=== PATIENT | female | born 1985 | race Caucasian/White ===

== ENCOUNTER 2019-03-30 21:41 | Emergency (ER) | payer OTHER ==
--- OUTSIDE RECORDS SUMMARY | 2019-03-30 21:48 | XMS REPORT | Continuity of Care Document ---
:1985 External Reference #:[id number] Author Name Clarence Painter M.D. (transmitted by agent of provider Brandy Motta) Address [address] [place] [address] Care Team Providers Name Role Phone Frank Almeida MD - Family Medicine Care Team Information Cold Rolling Supervisor [phone] Problems Description No Information Available Social History Type Date Description Comments Sex Unknown Tobacco Use Start: Unknown End: Used To Smoke Cigarettes But Unknown Quit. ETOH Use Rare Use Of Alcohol Recreational Drug Use Never Used Drugs Allergies, Adverse Reactions, Alerts Active Allergies Reaction Severity Comments Date Morphine anaphylaxis Moderate 03/06/2019 Bactrim Hives Moderate 03/06/2019 Penicillin Difficulty swallowing, Facial swelling, Severe 03/06/2019 Hives Medications Active Medications SIG Qnty Indications Ordering Provider Date Humira Unknown 40mg/0.4ML PSKT Phendimetrazine Tartrate Unknown 35mg Tablets Meloxicam Unknown 15mg Tablets Leflunomide Unknown 20mg Tablets Alprazolam as needed Unknown 0.25mg Tablets Oxycodone HCL Unknown 5mg Capsules Immunizations Description No Information Available Vital Signs Date Vital Result Comment 03/06/2019 8:59am Weight 340.00 lb Height 66 inches 5'6" BMI (Body Mass Index) 54.9 kg/m2 BP Systolic 146 mmHg BP Diastolic 97 mmHg Heart Rate 90 /min O2 % BldC Oximetry 97 % Body Temperature 98.2 F Pain Level 0 Results Description No Information Available Procedures Description No Information Available Medical Devices Description No Information Available Encounters Description No Information Available Assessments Description No Information Available Plan of Treatment Future Appointment(s):03/25/2019 8:45 am - Clarence Painter M.D. at [facility]/2018 6:00 pm - Clarence Painter M.D. at Main Office Functional Status Description No Information Available Mental Status Description No Information Available Referrals Description No Information Available
--- OUTSIDE RECORDS SUMMARY | 2019-03-30 21:48 | XMS REPORT | Continuity of Care Document ---
:1985 External Reference #:[id number] Author Name Fabian Santo DO, MPH Address [address] [place] [address], [address] [place] [address] Care Team Providers Name Role Phone Lexi Johnson M.D. - Family Medicine Care Team Information Low Heel Builder [phone] Frank Almeida M.D. - Family Care Team Information Low Heel Builder Medicine Problems Description No Information Available Social History Type Date Description Comments Sex Unknown Cigarette Use Former Cigarette Smoker ETOH Use Denies alcohol use Tobacco Use Start: Unknown End: Unknown Patient is a former smoker Smoking Status Reviewed: 02/18/19 Patient is a former smoker Allergies, Adverse Reactions, Alerts Active Allergies Reaction Severity Comments Date Penicillin Anaphylaxis 05/14/2016 Morphine Anaphylaxis 05/14/2016 Bactrim Urticaria, swelling of face 05/14/2016 Amoxicillin Anaphylaxis 05/14/2016 Medications Active Medications SIG Qnty Indications Ordering Provider Date Oxycodone HCL si by mouth 120tabs Fabian Santo DO, 05/24/2017 5mg every 6 hours as MPH Tablets directed chronic pain patient Xanax si by mouth Unknown 0.25mg Tablets every 8 hours as directed chronic pain patient Humira Pen Unknown 40mg/0.8ML PNKT Furosemide by mouth every Unknown 40mg day Tablets Meloxicam si by mouth Unknown 15mg every day as Tablets needed Leflunomide 1 by mouth every Unknown 20mg day Tablets Immunizations Description No Information Available Vital Signs Date Vital Result Comment 02/18/2019 9:23am BP Systolic 130 mmHg BP Diastolic 86 mmHg Heart Rate 84 /min Respiratory Rate 20 /min Height 66 inches 5'6" Weight 336.00 lb Pain Level 5 Pain at this time. Pain Level With Medicine 4 on average with meds Pain Level Without Medicine 9 without meds BMI (Body Mass Index) 54.2 kg/m2 01/19/2019 10:22am BP Systolic 128 mmHg BP Diastolic 86 mmHg Heart Rate 88 /min Respiratory Rate 20 /min Height 66 inches 5'6" Weight 334.00 lb Pain Level 7 Pain at this time. Pain Level With Medicine 6 on average with meds Pain Level Without Medicine 9 without meds BMI (Body Mass Index) 53.9 kg/m2 Results Description No Information Available Procedures Date Code Description Status 12/12/2018 19880 Omt 1-2 Body Regions Completed 10/21/2018 51842 Omt 3-4 Body Regions Completed Medical Devices Description No Information Available Encounters Type Date Location Provider Dx Diagnosis Office Visit 01/19/2019 Main Office as Of Fabian Santo DO G89.29 Other chronic pain 10:15a 07/18/13 MPH M54.2 Cervicalgia M54.6 Pain in thoracic spine M25.551 Pain in right hip M25.552 Pain in left hip M54.5 Low back pain Z79.891 halfway (current) use of opiate analgesic Office Visit 12/12/2018 10:15a Main Office as Fabian Santo G89.29 Other chronic Of 07/18/13 DO, MPH pain M54.2 Cervicalgia M54.6 Pain in thoracic spine M25.552 Pain in left hip M25.551 Pain in right hip M99.05 Segmental and somatic dysfunction of pelvic region Z79.891 halfway (current) use of opiate analgesic Office Visit 11/20/2018 10:30a Main Office as Fabian Santo G89.29 Other chronic Of 07/18/13 DO, MPH pain M54.2 Cervicalgia M54.6 Pain in thoracic spine M54.5 Low back pain L40.59 Other psoriatic arthropathy F41.9 Anxiety disorder, unspecified E66.01 Morbid (severe) obesity due to excess calories Z79.891 halfway (current) use of opiate analgesic Office Visit 10/21/2018 10:15a Main Office as Fabian Santo G89.29 Other chronic Of 07/18/13 DO, MPH pain M54.2 Cervicalgia M99.01 Segmental and somatic dysfunction of cervical region M54.6 Pain in thoracic spine M99.02 Segmental and somatic dysfunction of thoracic region M54.5 Low back pain M99.03 Segmental and somatic dysfunction of lumbar region Z79.891 intermediate project manager (current) use of opiate analgesic Office Visit 09/22/2018 9:45a Main Office as Fabian Santo, G89.29 Other chronic Of 07/18/13 DO, MPH pain M54.2 Cervicalgia M54.5 Low back pain Z79.891 halfway (current) use of opiate analgesic Office Visit 08/22/2018 9:00a Main Office as Fabian Santo, G89.29 Other chronic Of 07/18/13 DO, MPH pain M54.2 Cervicalgia M54.5 Low back pain M54.6 Pain in thoracic spine Z79.891 halfway (current) use of opiate analgesic Assessments Date Code Description Provider 02/18/2019 G89.29 Other chronic pain Santo, Fabian, DO, MPH 02/18/2019 M54.2 Cervicalgia Santo, Fabian, DO, MPH 02/18/2019 M54.6 Pain in thoracic spine Santo, Fabian, DO, MPH 02/18/2019 M54.5 Low back pain Santo, Fabian, DO, MPH 02/18/2019 Z79.891 intermediate project manager (current) use of opiate analgesic Santo, Fabian , DO, MPH 01/19/2019 G89.29 Other chronic pain Santo, Fabian, DO, MPH 01/19/2019 M54.2 Cervicalgia Santo, Fabian, DO, MPH 01/19/2019 M54.6 Pain in thoracic spine Santo, Fabian, DO, MPH 01/19/2019 M25.551 Pain in right hip Santo, Fabian, DO, MPH 01/19/2019 M25.552 Pain in left hip Santo, Fabian, DO, MPH 01/19/2019 M54.5 Low back pain Santo, Fabian, DO, MPH 01/19/2019 Z79.891 halfway (current) use of opiate analgesic Santo, Fabian , DO, MPH 12/12/2018 G89.29 Other chronic pain Santo, Fabian, DO, MPH 12/12/2018 M54.2 Cervicalgia Santo, Fabian, DO, MPH 12/12/2018 M54.6 Pain in thoracic spine Santo, Fabian, DO, MPH 12/12/2018 M25.552 Pain in left hip Santo, Fabian, DO, MPH 12/12/2018 M25.551 Pain in right hip Santo, Fabian, DO, MPH 12/12/2018 M99.05 Segmental and somatic dysfunction of pelvic Santo, Fabian, DO, MPH region 12/12/2018 Z79.891 halfway (current) use of opiate analgesic Santo, Fabian , DO, MPH 11/20/2018 G89.29 Other chronic pain Santo, Fabian, DO, MPH 11/20/2018 M54.2 Cervicalgia Santo, Fabian, DO, MPH 11/20/2018 M54.6 Pain in thoracic spine Santo, Fabian, DO, MPH 11/20/2018 M54.5 Low back pain Santo, Fabian, DO, MPH 11/20/2018 L40.59 Other psoriatic arthropathy Santo, Fabian, DO, MPH 11/20/2018 F41.9 Anxiety disorder, unspecified Santo, Fabian, DO, MPH 11/20/2018 E66.01 Morbid (severe) obesity due to excess Santo, Fabian, DO, MPH calories 11/20/2018 Z79.891 halfway (current) use of opiate analgesic Santo, Fabian , DO, MPH 10/21/2018 G89.29 Other chronic pain Santo, Fabian, DO, MPH 10/21/2018 M54.2 Cervicalgia Santo, Fabian, DO, MPH 10/21/2018 M99.01 Segmental and somatic dysfunction of Santo, Fabian, DO, MPH cervical region 10/21/2018 M54.6 Pain in thoracic spine Santo, Fabian, DO, MPH 10/21/2018 M99.02 Segmental and somatic dysfunction of Santo, Fabian, DO, MPH thoracic region 10/21/2018 M54.5 Low back pain Santo, Fabian, DO, MPH 10/21/2018 M99.03 Segmental and somatic dysfunction of lumbar Fabian Santo DO, MPH region 10/21/2018 Z79.891 halfway (current) use of opiate analgesic Fabian Santo DO, MPH 09/22/2018 G89.29 Other chronic pain Fabian Santo DO, MPH 09/22/2018 M54.2 Cervicalgia Fabian Santo DO, MPH 09/22/2018 M54.5 Low back pain Fabian Santo DO, MPH 09/22/2018 Z79.891 halfway (current) use of opiate analgesic Fabian Santo DO, MPH 08/22/2018 G89.29 Other chronic pain Fabian Santo DO MPH 08/22/2018 M54.2 Cervicalgia Fabian Santo DO, MPH 08/22/2018 M54.5 Low back pain Fabian Santo DO, MPH 08/22/2018 M54.6 Pain in thoracic spine Fabian Santo DO MPH 08/22/2018 Z79.891 intermediate project manager (current) use of opiate analgesic Fabian Santo DO, MPH Plan of Treatment Future Appointment(s):03/20/2019 9:45 am - Fabian Santo DO MPH at Main Office as Of 07/18/1408 - Fabian Santo DO, MPHG89.29 Other chronic painComments:Chronic. Symptoms and complaints discussed and reviewed today. No significant changes in physical findings. Continue current medical pain management.M54.2 CervicalgiaComments:Chronic. Symptoms and complaints discussed and reviewed today. No significant changes in physical findings. Continue current medical pain management.M54.6 Pain in thoracic spineComments: Chronic.Symptoms and complaints discussed and reviewed today. No significant changes in physical findings. Continue current medical pain management.M54.5 Low back painComments:Chronic. Symptoms and complaints discussed and reviewed today.No changes in physical findings. Patient is stable and comfortable when current medical therapy is rendered.Z79.891 intermediate project manager (current) use of opiate analgesicNew Labs:Urine Drug Screen, Ordered: 02/18/19Comments:Urine drug screen sample taken today to monitor opiate use and to monitor use of illicit substances.Will discuss results at next appointment.The following tests were ordered:6 AM, AMPH, VERONICA, JAYESH, BUP, CARIS, COCM, COT, ETG, FENT, MCSHSG, OPI, OXY, PCP, TAPEN, XTSY, ZOLP. A urine drug test (UDT) was ordered for this patient and collected on site today. Creatinine has been ordered as well for specimen validity, not for kidney function. Preliminary UDT results are not final and should not be used to determine patient care or plan of treatment. Initially a qualitative immunoassay screen will be done. Any inconsistent or positive findings will be further tested with a more comprehensive quantitative confirmation LCMS study. It is part of the treatment process of prescribing controlled substances and is considered standard of care.AllComments:Continue current medical pain management; injection therapy, osteopathic manipulation, PT / modalities, and consults as needed to manage chronic pain.Non - opioid pain management discussed and optionsdiscussed.Side effects discussed; anticipatory guidance given. Patient clearly understand and agree with all medical treatments and suggestions. All medicines prescribed are adequate and appropriate for this patient's complaint of pain, medical history, physical, and personal goals.Goals of Treatment are to provide adequate and appropriate multidisciplinary medical pain management to increase/ maintain patient's quality of life and functionality while maintaining satisfactory side effect profile andminimizing group home end-organ damage. Importance of regular nutrition throughout the day discussed.Activity as toleratedContinue with PCP Functional Status Description No Information Available Mental Status Description No Information Available Referrals Description No Information Available
--- OUTSIDE RECORDS SUMMARY | 2019-03-30 21:48 | XMS REPORT | Continuity of Care Document ---
:1985 External Reference #:[id number] Author Name Fabian Santo DO, MPH Address [address] [place] [address], [address] [place] [address] Care Team Providers Name Role Phone Lexi Johnson M.D. - Family Medicine Care Team Information Community Health Program Representative Frank Almeida M.D. - Family Care Team Information Community Health Program Representative [phone] Medicine Problems Description No Information Available Social History Type Date Description Comments Sex Unknown Cigarette Use Former Cigarette Smoker ETOH Use Denies alcohol use Tobacco Use Start: Unknown End: Unknown Patient is a former smoker Smoking Status Reviewed: 03/18/19 Patient is a former smoker Allergies, Adverse [...] 8 hours as directed chronic pain patient Furosemide by mouth every Unknown 40mg day Tablets Meloxicam si by mouth Unknown 15mg every day as Tablets needed Leflunomide 1 by mouth every Unknown 20mg day Tablets Enbrel weekly Unknown 50mg/ml Soln Prefill Syringe Immunizations Description No Information Available Vital Signs Date Vital Result Comment 03/18/2019 9:02am BP Systolic 132 mmHg BP Diastolic 84 mmHg Heart Rate 86 /min Respiratory Rate 20 /min Height 66 inches 5'6" Weight 329.00 lb Pain Level 8 Pain at this time. Pain Level With Medicine 8 on average with meds Pain Level Without Medicine 9 without meds BMI (Body Mass Index) 53.1 kg/m2 02/18/2019 9:23am BP Systolic 130 mmHg BP Diastolic 86 mmHg Heart Rate 84 /min Respiratory Rate 20 /min Height 66 inches 5'6" Weight 336.00 lb Pain Level 5 Pain at this time. 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 analgesic Office Visit 01/19/2019 10:15a Main Office as Fabian Santo G89.29 Other chronic Of 07/18/13 DO, MPH pain M54.2 Cervicalgia M54.6 Pain in thoracic spine M25.551 Pain in right hip M25.552 Pain in left hip M54.5 Low back pain Z79.891 [facility] (current) use of opiate analgesic Office Visit 12/12/2018 10:15a Main Office as Fabian Santo G89.29 Other chronic Of 07/18/13 DO, MPH pain M54.2 Cervicalgia M54.6 Pain in thoracic spine M25.552 Pain in left hip M25.551 Pain in right hip M99.05 Segmental and somatic dysfunction of pelvic region Z79.891 [facility] (current) use of opiate analgesic Office Visit 11/20/2018 10:30a Main Office as Fabian Santo G89.29 Other chronic Of 07/18/13 DO, MPH pain M54.2 Cervicalgia M54.6 Pain in thoracic spine M54.5 Low back pain L40.59 Other psoriatic arthropathy F41.9 Anxiety disorder, unspecified E66.01 Morbid (severe) obesity due to excess calories Z79.891 parts counterman (current) use of opiate analgesic Office Visit 10/21/2018 10:15a Main Office as Fabian Santo, G89.29 Other chronic Of 07/18/13 DO, MPH pain M54.2 Cervicalgia M99.01 Segmental and somatic dysfunction of cervical region M54.6 Pain in thoracic spine M99.02 Segmental and somatic dysfunction of thoracic region M54.5 Low back pain M99.03 Segmental and somatic dysfunction of lumbar region Z79.891 [facility] (current) use of opiate analgesic Office Visit 09/22/2018 9:45a Main Office as SantoFabian reese, G89.29 Other chronic Of 07/18/13 DO, MPH pain M54.2 Cervicalgia M54.5 Low back pain Z79.891 [facility] (current) use of opiate analgesic Assessments Date Code Description Provider 03/18/2019 G89.29 Other chronic pain Santo, Fabian, DO, MPH 03/18/2019 M54.2 Cervicalgia Santo, Fabian, DO, MPH 03/18/2019 M54.6 Pain in thoracic spine Santo, Fabian, DO, MPH 03/18/2019 M54.5 Low back pain Santo, Fabian, DO, MPH 03/18/2019 M25.551 Pain in right hip Santo, Fabian, DO, MPH 03/18/2019 M25.552 Pain in left hip Santo, Fabian, DO, MPH 03/18/2019 Z79.891 [facility] (current) use of opiate analgesic Santo, Fabian , DO, MPH 02/18/2019 G89.29 Other chronic pain Santo, Fabian, DO, MPH 02/18/2019 M54.2 Cervicalgia Santo, Fabian, DO, MPH 02/18/2019 M54.6 Pain in thoracic spine Santo, Fabina, DO, MPH 02/18/2019 M54.5 Low back pain Santo, Fabian, DO, MPH 02/18/2019 Z79.891 parts counterman (current) use of opiate analgesic Santo, Fabian [...] pain Santo, Fabian, DO, MPH 01/19/2019 Z79.891 parts counterman (current) use of opiate analgesic Santo, Fabian [...] Santo, Fabian, DO, MPH region 12/12/2018 Z79.891 parts counterman (current) use of opiate analgesic Santo, Fabian [...] Santo, Fabian, DO, MPH calories 11/20/2018 Z79.891 [facility] (current) use of opiate analgesic Fabian Santo DO, MPH 10/21/2018 G89.29 Other chronic pain Fabian Santo DO MPH 10/21/2018 M54.2 Cervicalgia Fabian Santo DO, MPH 10/21/2018 M99.01 Segmental and somatic dysfunction of Fabian Santo DO, MPH cervical region 10/21/2018 M54.6 Pain in thoracic spine Fabian Santo DO, MPH 10/21/2018 M99.02 Segmental and somatic dysfunction of Fabian Santo DO, MPH thoracic region 10/21/2018 M54.5 Low back pain Fabian Santo DO, MPH 10/21/2018 M99.03 Segmental and somatic dysfunction of lumbar Fabian Santo DO, MPH region 10/21/2018 Z79.891 parts counterman (current) use of opiate analgesic Fabian Santo DO MPH 09/22/2018 G89.29 Other chronic pain Fabian Santo DO, MPH 09/22/2018 M54.2 Cervicalgia Fabian Santo DO, MPH 09/22/2018 M54.5 Low back pain Fabian Santo DO, MPH 09/22/2018 Z79.891 [facility] (current) use of opiate analgesic Fabian Santo DO, MPH Plan of Treatment Future Appointment(s):04/17/2019 9:45 am - Fabian Santo DO MPH at Main Office as Of 07/18/1409 - Fabian Santo DO, MPHG89.29 Other chronic [...] and comfortable when current medical therapy is rendered.M25.551 Pain in right hipComments:Chronic. Symptoms and complaints discussed and reviewed today. No significant changes in physical findings. Continue current medical pain management.M25.552 Pain in left hipComments:Chronic. Symptoms and complaints discussed and reviewed today. No significant changes in physical findings. Continue current medical pain management.Z79.891 parts counterman (current) use of opiate analgesicNew Labs:Urine Drug Screen, Ordered: 03/18/19Comments:Urine drug screen sample taken today to monitor [...] considered standard of care.AllComments:Continue current medical pain management ; injection therapy, osteopathic manipulation, PT / modalities, [...] while maintaining satisfactory side effect profile andminimizing termite renewal inspector end-organ damage. Importance of regular nutrition throughout the day discussed.Activity as toleratedContinue with PCP Functional Status Description No Information Available Mental Status Description No Information Available Referrals Description No Information Available
--- NOTE | 2019-03-30 21:52 | UC ---
Skin Complaint HPI - HPI Summary HPI Summary: 33 yo female presents with RIGHT index finger wound. She tells me that 2 days ago she sustained a puncture wound to her right index finger on her wooden door frame. Since that time has developed redness, swelling, and pain to the area. She is on Enbrel for psoriatic arthritis and is concerned for infection. Last tetanus was in 2010 and she is declining tdap today. - History of Current Complaint Time Seen by Provider: 03/30/19 21:52 Stated Complaint: RT INDEX FINGER SKIN ISSUE Hx Obtained From: Patient Hx Last Menstrual Period: 06/23/14 Onset/Duration: Gradual Onset Onset Severity: Mild Current Severity: Moderate Pain Intensity: 7 Pain Scale Used: 0-10 Numeric - Allergy/Home Medications Allergies/Adverse Reactions: Allergies Allergy/AdvReac Type Severity Reaction Status Date / Time amoxicillin Allergy Hives Verified 03/30/19 22:00 morphine Allergy Anaphylatic Verified 03/30/19 22:00 Shock Penicillins Allergy Anaphylatic Verified 03/30/19 22:00 Shock sulfamethoxazole Allergy Anaphylatic Verified 03/30/19 22:00 [From Bactrim] Shock trimethoprim [From Bactrim] Allergy Anaphylatic Verified 03/30/19 22:00 Shock PMH/Surg Hx/FS Hx/Imm Hx - Additional Past Medical History Additional PMH: Psoriatic Arthritis - Surgical History Surgical History: Yes Surgery Procedure, Year, and Place: Cyst removed from chest and right side base of neck 2010. - Family History Known Family History: Positive: Unknown - Social History Occupation: Employed Full-time Lives: With Family Alcohol Use: None Substance Use Type: None Substance Use Comment - Amount & Last Used: percocet Smoking Status (MU): Former Smoker Type: Cigarettes Amount Used/How Often: 1/2 ppd Have You Smoked in the Last Year: Yes When Did the Patient Quit Smoking/Using Tobacco: 03/2014 Review of Systems All Other Systems Reviewed And Are Negative: No Constitutional: Positive: Negative Skin: Positive: Other - Right index finger wound Respiratory: Positive: Negative Cardiovascular: Positive: Negative Neurological: Positive: Negative Psychological: Positive: Negative Physical Exam - Summary Physical Exam Summary: GENERAL: NAD. WDWN. No pain distress. SKIN: RIGHT INDEX FINGER: radial aspect with 2mm puncture wound near the nail with surround mild erythema, warmth, and tenderness. Finger pad with mild edema , tenderness, and warmth. No drainage or streaking. CHEST: No accessory muscle use. Breathing comfortably and in no distress. CV: Pulses intact. Cap refill <2seconds MSK: FROM at right idnex DIP NEURO: Alert. PSYCH: Age appropriate behavior. Triage Information Reviewed: Yes Vital Signs: Vital Signs: Temp Pulse Resp BP Pulse Ox 99.2 F 113 20 170/101 100 03/30/19 21:51 03/30/19 21:51 03/30/19 21:51 03/30/19 21:51 03/30/19 21:51 Vital Signs Reviewed: Yes Course/Dx - Course Course Of Treatment: Puncture wound to finger with surround cellulitis - will rx for clindamycin. She is declining tetanus vaccination today - Diagnoses Provider Diagnosis: Puncture wound of finger Discharge ED - Sign-Out/Discharge Documenting (check all that apply): Patient Departure All imaging exams completed and their final reports reviewed: No Studies - Discharge Plan Condition: Stable Disposition: HOME Prescriptions: Clindamycin HCl 300 mg PO TID #21 capsule Patient Education Materials: Wound Infection (ED) Referrals: Frank Almeida MD [Primary Care Provider] - Additional Instructions: If you develop a fever, shortness of breath, chest pain, new or worsening symptoms - please call your PCP or go to the ED immediately. Your blood pressure was high at todays visit. Please see your primary provider within 4 weeks for recheck and re-evaluation. Soak your finger in warm salt water or epsom salts intermittently throughout the day. - Billing Disposition and Condition Condition: STABLE Disposition: Home - Attestation Statements Provider Attestation: Chart reviewed. Pt not seen by me. I was available for consult. LIZZIE
[2019-03-30] MEDS ORDERED: Clindamycin CAP* 150 MG PO ONE (21:55)
[2019-03-30 21:59] VITALS: BP 170/101
== END 2019-03-30 22:10 | disposition home or self-care (01) ==
LOC: UCCORT 21:41
DX: S61.230A Puncture wound without foreign body of right index finger without damage to nail, initial encounter (principal); L40.50 Arthropathic psoriasis, unspecified; Z79.899 Other long term (current) drug therapy; Z88.0 Allergy status to penicillin; Z88.5 Allergy status to narcotic agent; Z88.2 Allergy status to sulfonamides; Z87.891 Personal history of nicotine dependence; W45.8XXA Other foreign body or object entering through skin, initial encounter; Y92.9 Unspecified place or not applicable
CPT/HCPCS: 99212; A9270-GY; G0463

== ENCOUNTER 2019-06-15 10:20 | Emergency (ER) | payer OTHER ==
--- OUTSIDE RECORDS SUMMARY | 2019-06-15 10:28 | XMS REPORT | Continuity of Care Document ---
:1985 External Reference #:[id number] Author Name Fabian Santo DO, MPH Address [address] [place] [address], [address] [place] [address] Care Team Providers Name Role Phone Lexi Johnson M.D. - Family Medicine Care Team Information Commercial Parts Professional [phone] Frank Almeida M.D. - Family Care Team Information Commercial Parts Professional Medicine Problems Description No Information Available Social History Type Date Description Comments Sex Unknown Cigarette Use Former Cigarette Smoker ETOH Use Denies alcohol use Tobacco Use Start: Unknown End: Unknown Patient is a former smoker Smoking Status Reviewed: 04/17/19 Patient is a former smoker Allergies, Adverse [...] Available Vital Signs Date Vital Result Comment 04/17/2019 9:49am BP Systolic 136 mmHg BP Diastolic 82 mmHg Heart Rate 88 /min Respiratory Rate 20 /min Height 66 inches 5'6" Weight 336.00 lb Pain Level 8 Pain at this time. Pain Level With Medicine 7 on average with meds Pain Level Without Medicine 9 without meds BMI (Body Mass Index) 54.2 kg/m2 03/18/2019 9:02am BP Systolic 132 mmHg BP Diastolic 84 mmHg Heart Rate 86 /min Respiratory Rate 20 /min Height 66 inches 5'6" Weight 329.00 lb Pain Level 8 Pain at this time. Pain Level With Medicine 8 on average with meds Pain Level Without Medicine 9 without meds BMI (Body Mass Index) 53.1 kg/m2 Results Description No Information Available Procedures Date Code Description Status 12/12/2018 24135 Omt 1-2 Body Regions Completed 10/21/2018 43225 Omt 3-4 Body Regions Completed Medical Devices Description No Information Available Encounters Type Date Location Provider Dx Diagnosis Office Visit 03/18/2019 Main Office as Of Fabian Santo DO G89.29 Other chronic pain 9:00a 07/18/13 MPH M54.2 Cervicalgia M54.6 Pain in thoracic spine M54.5 Low back pain M25.551 Pain in right hip M25.552 Pain in left hip Z79.891 prison (current) use of opiate analgesic Office Visit 02/18/2019 9:15a Main Office as Fabian Santo G89.29 Other chronic Of 07/18/13 DO, MPH pain M54.2 Cervicalgia M54.6 Pain in thoracic spine M54.5 Low back pain Z79.891 prison (current) use of opiate analgesic Office Visit 01/19/2019 10:15a Main Office as Fabian Santo G89.29 Other chronic Of 07/18/13 DO, MPH pain M54.2 Cervicalgia M54.6 Pain in thoracic spine M25.551 Pain in right hip M25.552 Pain in left hip M54.5 Low back pain 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 Office Visit 12/12/2018 10:15a Main Office as Fabian Santo G89.29 Other chronic Of 07/18/13 DO, MPH pain M54.2 Cervicalgia M54.6 Pain in thoracic spine M25.552 Pain in left hip M25.551 Pain in right hip M99.05 Segmental and somatic dysfunction of pelvic region Z79.891 prison (current) use of opiate analgesic Office Visit 11/20/2018 10:30a Main Office as Fabian Santo, G89.29 Other chronic Of 07/18/13 , MPH pain M54.2 Cervicalgia M54.6 Pain in thoracic spine M54.5 Low back pain L40.59 Other psoriatic arthropathy F41.9 Anxiety disorder, unspecified E66.01 Morbid (severe) obesity due to excess calories 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 Office Visit 10/21/2018 10:15a Main Office as Fabian Santo, G89.29 Other chronic Of 07/18/13 DO MPH pain M54.2 Cervicalgia M99.01 Segmental and somatic dysfunction of cervical region M54.6 Pain in thoracic spine M99.02 Segmental and somatic dysfunction of thoracic region M54.5 Low back pain M99.03 Segmental and somatic dysfunction of lumbar region 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 Assessments Date Code Description Provider 04/17/2019 G89.29 Other chronic pain Santo, Fabian, DO, MPH 04/17/2019 M54.2 Cervicalgia SantoFabian reese, DO, MPH 04/17/2019 M99.01 Segmental and somatic dysfunction of SantoFabian reese, DO, MPH cervical region 04/17/2019 M54.6 Pain in thoracic spine SantoFabian reese, DO, MPH 04/17/2019 M99.02 Segmental and somatic dysfunction of SantoFabian reese, DO, MPH thoracic region 04/17/2019 M25.511 Pain in right shoulder Santo, Fabian, DO, MPH 04/17/2019 M25.512 Pain in left shoulder Santo, Fabian, DO, MPH 04/17/2019 M99.07 Segmental and somatic dysfunction of upper Fabian Santo, DO, MPH extremity 04/17/2019 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 Santo, Fabian , DO, MPH 03/18/2019 G89.29 Other chronic pain Santo, Fabian, DO, MPH 03/18/2019 M54.2 Cervicalgia Santo, Fabian, DO, MPH 03/18/2019 M54.6 Pain in thoracic spine Santo, Fabian, DO, MPH 03/18/2019 M54.5 Low back pain Santo, Fabian, DO, MPH 03/18/2019 M25.551 Pain in right hip Santo, Fabian, DO, MPH 03/18/2019 M25.552 Pain in left hip Santo, Fabian, DO, MPH 03/18/2019 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 Santo, Fabian , DO, MPH 02/18/2019 G89.29 Other chronic pain Santo, Fabian, DO, MPH 02/18/2019 M54.2 Cervicalgia Santo, Fabian, DO, MPH 02/18/2019 M54.6 Pain in thoracic spine Santo, Fabian, DO, MPH 02/18/2019 M54.5 Low back pain Santo, Fabian, DO, MPH 02/18/2019 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 Santo, Fabian [...] pain Santo, Fabian, DO, MPH 01/19/2019 Z79.891 prison (current) use of opiate analgesic Santo, Fabian , DO, MPH 12/12/2018 G89.29 Other chronic pain Santo, Fabian, DO, MPH 12/12/2018 M54.2 Cervicalgia Santo, Fabian, DO, MPH 12/12/2018 M54.6 Pain in thoracic spine Santo, Fabian, DO, MPH 12/12/2018 M25.552 Pain in left hip Santo, Fabian, DO, MPH 12/12/2018 M25.551 Pain in right hip SantoMarina reeseph, DO, MPH 12/12/2018 M99.05 Segmental and somatic dysfunction of pelvic SantoMarina reeseph, DO, MPH region 12/12/2018 Z79.891 prison (current) use of opiate analgesic Santo, Fabian , DO, MPH 11/20/2018 G89.29 Other chronic pain Santo, Fabian, DO, MPH 11/20/2018 M54.2 Cervicalgia Santo, Fabian, DO, MPH 11/20/2018 M54.6 Pain in thoracic spine SantoMarina reeseph, DO, MPH 11/20/2018 M54.5 Low back pain SantoMarina reeseph, DO, MPH 11/20/2018 L40.59 Other psoriatic arthropathy SantoMarina reeseph, DO, MPH 11/20/2018 F41.9 Anxiety disorder, unspecified Santo, Fabian, DO, MPH 11/20/2018 E66.01 Morbid (severe) obesity due to excess SantoMarina reeseph, DO, MPH calories 11/20/2018 Z79.891 prison (current) use of opiate analgesic SantoMarina reeseph , DO, MPH 10/21/2018 G89.29 Other chronic pain SantoMarina reeseph, DO, MPH 10/21/2018 M54.2 Cervicalgia SantoMarina reeseph, DO, MPH 10/21/2018 M99.01 Segmental and somatic dysfunction of SantoFabian reese, DO, MPH cervical region 10/21/2018 M54.6 Pain in thoracic spine SantoFabian reese DO, MPH 10/21/2018 M99.02 Segmental and somatic dysfunction of SantoMarina reeseph, DO, MPH thoracic region 10/21/2018 M54.5 Low back pain SantoMarina reeseph, DO, MPH 10/21/2018 M99.03 Segmental and somatic dysfunction of lumbar SantoFabian reese, DO, MPH region 10/21/2018 Z79.891 prison (current) use of opiate analgesic SantoFabian reese , DO, MPH Plan of Treatment Future Appointment(s):05/19/2019 9:45 am - Fabian Santo DO, MPH at Main Office as Of 07/18/1410/06/2018 - Fabian Santo DO, MPHG89.29 Other chronic painComments:Chronic. Symptoms and complaints discussed and reviewed today. No significant changes in physical findings. Continue current medical pain management.M54.2 CervicalgiaComments:Chronic. Symptoms and complaints discussed and reviewed today. No significant changes in physical findings. Continue current medical pain management.M99.01 Segmental and somatic dysfunction of cervical regionComments:Chronic. Symptoms and complaints discussed and reviewed today. Somatic dysfunctions noted warrantingOMT. Continue current medical pain management and OMT. Y2PLaNi. OMT performed.M54.6 Pain in thoracic spineComments: Chronic.Symptoms and complaints discussed and reviewed today. No significant changes in physical findings. Continue current medical pain management.M99.02 Segmental and somatic dysfunction of thoracic regionComments:Chronic. Symptoms and complaints discussed and reviewed today. Notable somatic dysfunctions noted warranting OMT. Continue current medical pain management and OMT. [id number]. OMT performed after evaluation. HVLA.M25.511 Pain in right shoulderComments: Chronic. Symptoms and complaints discussed and reviewed today. No significant changes in physical findings. Continue current medical pain management.M25.512 Pain in left shoulderComments:Chronic. Symptoms and complaints discussed and reviewed today. No significant changes in physical findings. Continue current medical pain management.M99.07 Segmental and somatic dysfunction of upper extremityComments:Chronic. Symptoms and complaints discussed and reviewed today. Somatic dysfunctions noted warrantingOMT to the shoulder. Continue current medical pain management and OMT. Myofascial restrictions. OMTperformed. R.Z79.891 prison (current) use of opiate analgesicNew Labs:Urine Drug Screen, Ordered: 04/17/19Comments:Urine drug screen sample taken today to monitor opiate use and to monitor use of illicit substances.Will discuss results at next appointment.The following tests were ordered:6 AM, AMPH, VERONICA, JAYESH, BUP, CARIS, COCM, ETG, FENT, MCSHSG, OPI, OXY, PCP, TAPEN, XTSY, ZOLP. A urine drug test (UDT) was ordered for this patient and collected on site today. Creatinine has been ordered as well for specimen validity, not for kidney function. Preliminary UDT results are not final and should not be used to determine patient care or plan of treatment. Initially a qualitative immunoassay screen will bedone. Any inconsistent or positive findings will be [...] while maintaining satisfactory side effect profile andminimizing rn long term care end-organ damage. Importance of regular nutrition throughout the day discussed.Activity as toleratedContinue with PCP Functional Status Description No Information Available Mental Status Description No Information Available Referrals Description No Information Available
--- OUTSIDE RECORDS SUMMARY | 2019-06-15 10:28 | XMS REPORT | Continuity of Care Document ---
:1985 External Reference #:[id number] Author Name Clarence Painter M.D. Address [address] [place] [address] Care Team Providers Name Role Phone Frank Almeida MD - Family Medicine Care Team Information Bank Accountant Problems Description No Information Available Social History [...] Medications Active Medications SIG Qnty Indications Ordering Date Provider Dexamethasone Sodium 3 drops in the 5ml Clarence Painter, 05/21/2019 Phosphate affected ear for M.D. 0.1% Solution itching/ irritation as needed max three times a day - eye drops for ear Clindamycin HCL 1 by mouth twice 14caps Clarence Painter, 05/19/2019 300mg a day for 7 days M.D. Capsules Hydrocortisone-Acetic 4 drops twice a 3units Clarence Painter, 03/31/2019 Acid day for itching M.D. 1-2% Solution as needed. Fluocinolone Acetonide 5 drops as needed 1units Clarence Painter, 03/31/2019 Ear Drops in the affected M.D. 0.01% Oil ear twice a day. Humira Unknown 40mg/0.4ML PSKT Phendimetrazine Unknown Tartrate 35mg Tablets Meloxicam Unknown 15mg Tablets Leflunomide Unknown 20mg Tablets Alprazolam as needed Unknown 0.25mg Tablets Oxycodone HCL Unknown 5mg Capsules Immunizations Description No Information Available Vital Signs Date Vital Result Comment 05/21/2019 10:18am Weight 343.00 lb Height 66 inches 5'6" BMI (Body Mass Index) 55.4 kg/m2 BP Systolic 160 mmHg BP Diastolic 95 mmHg Heart Rate 92 /min O2 % BldC Oximetry 97 % Body Temperature 97.9 F Pain Level 6 04/29/2019 11:44am Weight 337.00 lb Height 66 inches 5'6" BMI (Body Mass Index) 54.4 kg/m2 BP Systolic 149 mmHg BP Diastolic 110 mmHg Heart Rate 90 /min O2 % BldC Oximetry 97 % Body Temperature 98.1 F Pain Level 7 Results Test Acquired Date Facility Test Result H/L Range Note Laboratory test 04/21/2019 [facility] Surgical SEE RESULT [address] [place] [address] [phone] Laboratory test 03/21/2019 [facility] Cytology SEE RESULT 2 , [address] [place] [address] [phone] 1 SEE RESULT BELOW Name: RABIA YORK : [address]: Clarence Painter MD Acct: [id number] Unit: [id number] AGE: 33 Location: [facility] Re04/21/19 SEX: F Status: REG REF SPEC: [id number] COLEMAN: 04/21/19-[address] 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 Local extent: Confined to thyroid. Margins: Negative. Multicentricity: Single focus. Lymphovascular invasion: Present. Other findings: Capsular invasion; multinodular follicular hyperplasia. pTNM histopathologic stage: pT3a NX M N/A. COMMENT: Dr. Schulz reviewed this case in intradepartmental consultation and agrees with the diagnosis. CLINICAL HISTORY No history given GROSS DESCRIPTION The specimen is received in formalin labeled, Right Thyroid, and consists of a 39 g, 5.8 x 4.4 x 3.7 cm unoriented thyroid lobe. The capsule is smooth to shaggy brown- mcgowan with multiple fibromembranous adhesions and mild cauterization. There is a 4.6 x 3.5 x 3.2 cm CONTINUED ON NEXT PAGE DEPARTMENT OF PATHOLOGY, [address] [place] [address] Sukhdeep Schulz M.D. Director [facility] # [id number] schumacher-pink well-defined encapsulated focally cystic mass with scant focal hemorrhage which abuts the inked capsule. The remaining cut surface is colloidal brown-mcgowan. The specimen is inked, serially sectioned and service center representative sections are submitted in cassettes A through J to include mass in cassettes B through I. Signed by and Reported on: Kylah Arcos MD 04/23/19 1419 END OF REPORT DEPARTMENT OF PATHOLOGY, [address] [place] [address] Sukhdeep Schulz M.D. Director [facility] # [id number] 2 [id number] SEE RESULT BELOW Name: RABIA YORK : [address]: Clarence Painter MD Acct: [id number] Unit: [id number] AGE: 33 Location: [facility] Re03/21/19 SEX: F Status: REG REF SPEC: [id number] COLEMAN: 03/21/[address] 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 The specimen demonstrates abundant watery colloid, an abundant largely cohesive follicular epithelium arranged in uniform sheets, medium sized follicles and only occasional small groups demonstrating variable Hurthle cell metaplasia. No atypical Hurthle cells are seen. Lymphoid tangles, lymphocytes and plasma cells are seen in the background. No features of papillary carcinoma are seen. In this clinical setting the risk of malignancy is less than 3%. Clinical management of this thyroid nodule should be based on clinical and radiographic features as well as the above findings. SPECIMEN(S) RECEIVED THYROID RIGHT - RIGHT THYROID FINE NEEDLE ASPIRATION CLINICAL HISTORY Right thyroid nodule. CONTINUED ON NEXT PAGE DEPARTMENT OF PATHOLOGY, [address] [place] [address] Sukhdeep Schulz M.D. Director [facility] # [id number] GROSS DESCRIPTION 1 Alcohol fixed slide(s) received from clinician, 5 Air dried slide(s) and Needle rinse in CytoLyt solution for thin layer non-lisw test.(clear) Signed by and Reported on: Kylah Arcos MD 03/24/19 1219 END OF REPORT DEPARTMENT OF PATHOLOGY, [address] [place] [address] Sukhdeep Schulz M.D. Director [facility] # [id number] Procedures Date Code Description Status 04/21/2019 65427 Tot.Thyroid Lobect./Unil./Isthmus Completed 04/21/2019 71326 Tot.Thyroid Lobect./Unil./Isthmus Completed 03/21/2019 03155 Fine Needle Aspiration Biopsy [facility] Ultrasound Guidance Completed 03/06/2019 10706 Ultrasound Head/Neck Completed 03/06/2019 25817 Fiberoptic Laryngoscopy,Diag. Completed Medical Devices Description No Information Available Encounters Type Date Location Provider Dx Diagnosis Office Visit 03/31/2019 Main Office Clarence Painter M.D. L21.9 Seborrheic 11:00a dermatitis, unspecified E04.2 Nontoxic multinodular goiter Office Visit 03/06/2019 9:00a Main Office Clarence Painter, E04.2 Nontoxic multinodular M.D. goiter R49.0 Dysphonia E66.9 Obesity, unspecified Assessments Date Code Description Provider 05/21/2019 C73 Malignant neoplasm of thyroid gland Clarence Painter M.D. 04/29/2019 C73 Malignant neoplasm of thyroid gland Chasity Boo NP 04/21/2019 E07.89 Other specified disorders of thyroid Chasity Boo NP 04/21/2019 E07.89 Other specified disorders of thyroid Clarence Painter M.D. 03/31/2019 L21.9 Seborrheic dermatitis, unspecified Clarence Painter M.D. 03/31/2019 E04.2 Nontoxic multinodular goiter Clarence Painter M.D. 03/21/2019 E04.2 Nontoxic multinodular goiter Clarence Painter M.D. 03/06/2019 E04.2 Nontoxic multinodular goiter Clarence Painter M.D. 03/06/2019 R49.0 Dysphonia Clarence Painter M.D. 03/06/2019 E66.9 Obesity, unspecified Clarence Painter M.D. Plan of Treatment Future Appointment(s):05/28/2019 10:00 am - Clarence Painter M.D. at Main Liiohk3707/2019 10:00 am - Chasity Boo NP at Main Ooiisw9808/11/2019 10:30 am - Clarence Painter M.D. at Main Lkbuue2008/10/2019 7:30 am - Chasity Boo NP at Main Joognu5408/10/2019 7:30 am - [facility] at [facility] Functional Status Description No Information Available Mental Status Description No Information Available Referrals Refer to Reason for Referral Status Appt Date Clarence Painter M.D. NO AUTH REQ FOR SURGERY Created [address] [place] [address] [phone]
--- OUTSIDE RECORDS SUMMARY | 2019-06-15 10:28 | XMS REPORT | Continuity of Care Document ---
:1985 External Reference #:[id number] Author Name Clarence Painter M.D. (transmitted by agent of provider Brandy Motta) Address [address] [place] [address] Care Team Providers Name Role Phone Frank Almeida MD - Family Medicine Care Team Information Supervisor Drying And Softening Problems Description No Information Available Social History [...] Capsules Hydrocortisone-Acetic 4 drops twice a 3units Claernce Painter, 03/31/2019 Acid day for itching M.D. [...] Result H/L Range Note Laboratory test 04/21/2019 [facility] Surgical SEE RESULT [address] [place] [address] [phone] Laboratory test 03/21/2019 [facility] Cytology SEE RESULT 2 , [address] Non-Drafter [place] [address] [phone] 1 SEE RESULT BELOW Name: RABIA YORK : [address]: Clarence Painter MD Acct: [id number] Unit: [id number] AGE: 33 Location: [facility] Re04/21/19 SEX: F Status: REG REF SPEC: [id number] COLEMAN: 04/21/190850 [facility] DR: Clarence Painter MD REQ: [id number] RECD: 04/21/199 STATUS: SOUT _ ORDERED: LEVEL 5 COMMENTS: [id number] FINAL DIAGNOSIS Thyroid, right, hemithyroidectomy: -- Follicular [...] CONTINUED ON NEXT PAGE DEPARTMENT OF PATHOLOGY, [address] [place] [address] Sukhdeep Schulz M.D. Director [facility] # [id number] schumacher-pink well-defined encapsulated focally cystic mass with scant focal hemorrhage which abuts the inked capsule. The remaining cut surface is colloidal brown-mcgowan. The specimen is inked, serially sectioned and route service representative sections are submitted in cassettes A through J to include mass in cassettes B through I. Signed by and Reported on: Kylah Arcos MD 04/23/19 1419 END OF REPORT DEPARTMENT OF PATHOLOGY, [address] [place] [address] Sukhdeep Schulz M.D. Director [facility] # [id number] 2 [id number] SEE RESULT BELOW Name: RABIA YORK : [address]: Clarence Painter MD Acct: [id number] Unit: [id number] AGE: 33 Location: [facility] Re03/21/19 SEX: F Status: REG REF SPEC: [id number] COLEMAN: 03/21/[address] [facility] [address]: Clarence Painter MD REQ: [id number] RECD: 03/21/19 STATUS: SOUT _ ORDERED: [facility] COMMENTS: [id number] FINAL DIAGNOSIS Thyroid, right, fine needle aspiration: -- Benign thyroid nodule, chronic lymphocytic thyroiditis ([place] class II). The specimen demonstrates abundant watery [...] CONTINUED ON NEXT PAGE DEPARTMENT OF PATHOLOGY, [address] [place] [address] Sukhdeep Schulz M.D. Director [facility] # [id number] GROSS DESCRIPTION 1 Alcohol fixed slide(s) received from clinician, 5 Air dried slide(s) and Needle rinse in CytoLyt solution for thin layer non-nurse gynecology test.(clear) Signed by and Reported on: Kylah Arcos MD 03/24/19 1219 END OF REPORT DEPARTMENT OF PATHOLOGY, [address] [place] [address] Sukhdeep Schulz M.D. Director [facility] # [id number] Procedures Date Code Description Status 04/21/2019 78103 Tot.Thyroid Lobect./Unil./Isthmus Completed 04/21/2019 82480 Tot.Thyroid Lobect./Unil./Isthmus Completed 03/21/2019 16400 Fine Needle Aspiration Biopsy [facility] Ultrasound Guidance Completed 03/06/2019 89977 Ultrasound Head/Neck Completed 03/06/2019 78354 Fiberoptic Laryngoscopy,Diag. Completed Medical Devices Description No Information Available Encounters Type Date Location Provider Dx Diagnosis Office Visit 03/31/2019 Main Office Clarence Painter M.D. L21.9 Seborrheic 11:00a dermatitis, unspecified E04.2 Nontoxic multinodular goiter Office Visit 03/06/2019 9:00a Main Office Clarence Painter, E04.2 Nontoxic multinodular M.D. goiter R49.0 Dysphonia E66.9 Obesity, unspecified Assessments Date Code Description Provider 04/29/2019 C73 Malignant neoplasm of thyroid gland [...] Clarence Painter M.D. Plan of Treatment Future Appointment(s):08/17/2019 10:00 am - Chasity Boo NP at Main Eyxycm7708/11/2019 10:30 am - Clarence Painter M.D. at Main Vxnxgm0208/10/2019 7:30 am - Chasity Boo NP at Main Zniabi0908/10/2019 7:30 am - Inocencio [facility] at [facility] Functional Status Description No Information Available Mental Status Description No Information Available Referrals Refer to Dr Reason for Referral Status Appt Date Clarence Painter M.D. NO AUTH REQ FOR SURGERY Created [address] [place] [address] [phone]
--- OUTSIDE RECORDS SUMMARY | 2019-06-15 10:28 | XMS REPORT | Continuity of Care Document ---
:1985 External Reference #:[id number] Author Name Fabian Santo DO, MPH Address [address] [place] [address], [address] [place] [address] Care Team Providers Name Role Phone Lexi Johnson M.D. - Family Medicine Care Team Information Linotype Worker [phone] Frank Almeida M.D. - Family Care Team Information Linotype Worker [phone] Medicine Problems Description No Information Available Social History Type Date Description Comments Sex Unknown Cigarette Use Former Cigarette Smoker ETOH Use Denies alcohol use Tobacco Use Start: Unknown End: Unknown Patient is a former smoker Smoking Status Reviewed: 05/19/19 Patient is a former smoker Allergies, Adverse [...] Available Vital Signs Date Vital Result Comment 05/19/2019 10:13am BP Systolic 132 mmHg BP Diastolic 80 mmHg Heart Rate 84 /min Respiratory Rate 20 /min Height 66 inches 5'6" Weight 338.00 lb Pain Level 8 Pain at this time. Pain Level With Medicine 7 on average with meds Pain Level Without Medicine 9 without meds BMI (Body Mass Index) 54.5 kg/m2 04/17/2019 9:49am BP Systolic 136 mmHg BP [...] Information Available Procedures Date Code Description Status 04/17/2019 25516 Omt 3-4 Body Regions Completed 12/12/2018 90923 Omt 1-2 Body Regions Completed Medical Devices Description No Information Available Encounters Type Date Location Provider Dx Diagnosis Office Visit 04/17/2019 Main Office as Of Fabian Santo DO G89.29 Other chronic pain 9:45a 07/18/13 MPH M54.2 Cervicalgia M99.01 Segmental and somatic dysfunction of cervical region M54.6 Pain in thoracic spine M99.02 Segmental and somatic dysfunction of thoracic region M25.511 Pain in right shoulder M25.512 Pain in left shoulder M99.07 Segmental and somatic dysfunction of upper extremity 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 Office Visit 03/18/2019 9:00a Main Office as Fabian Santo G89.29 Other chronic Of 07/18/13 DO, MPH pain M54.2 Cervicalgia M54.6 Pain in thoracic spine M54.5 Low back pain M25.551 Pain in right hip M25.552 Pain in left hip 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 Office Visit 02/18/2019 9:15a Main Office as Fabian Santo G89.29 Other chronic Of 07/18/13 DO, MPH pain M54.2 Cervicalgia M54.6 Pain in thoracic spine M54.5 Low back pain Z79.891 senior living (current) use of opiate analgesic Office Visit 01/19/2019 10:15a Main Office as Fabian Santo G89.29 Other chronic Of 07/18/13 DO, MPH pain M54.2 Cervicalgia M54.6 Pain in thoracic spine M25.551 Pain in right hip M25.552 Pain in left hip M54.5 Low back pain 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 Office Visit 12/12/2018 10:15a Main Office as Fabian Santo, G89.29 Other chronic Of 07/18/13 DO, MPH pain M54.2 Cervicalgia M54.6 Pain in thoracic spine M25.552 Pain in left hip M25.551 Pain in right hip M99.05 Segmental and somatic dysfunction of pelvic region Z79.891 senior living (current) use of opiate analgesic Office Visit 11/20/2018 10:30a Main Office as Fabian Santo G89.29 Other chronic Of 07/18/13 DO, MPH pain M54.2 Cervicalgia M54.6 Pain in thoracic spine M54.5 Low back pain L40.59 Other psoriatic arthropathy F41.9 Anxiety disorder, unspecified E66.01 Morbid (severe) obesity due to excess calories 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 Assessments Date Code Description Provider 05/19/2019 G89.29 Other chronic pain SantoFabian reese DO, MPH 05/19/2019 M54.2 Cervicalgia SantoFabian reese DO, MPH 05/19/2019 M54.6 Pain in thoracic spine SantoFabian reese DO, MPH 05/19/2019 M25.511 Pain in right shoulder SantoFabian reese DO, MPH 05/19/2019 M25.512 Pain in left shoulder Santo, Fabian, DO, MPH 05/19/2019 M54.5 Low back pain SantoMarina reeseph, DO, MPH 05/19/2019 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 Fabian Santo , DO, MPH 04/17/2019 G89.29 Other chronic pain Santo, Fabian, DO, MPH 04/17/2019 M54.2 Cervicalgia SantoMarina reeseph, DO, MPH 04/17/2019 M99.01 Segmental and somatic dysfunction of SantoFabian reese, DO, MPH cervical region 04/17/2019 M54.6 Pain in thoracic spine Santo, Fabian, DO, MPH 04/17/2019 M99.02 Segmental and somatic dysfunction of Santo, Fabian, DO, MPH thoracic region 04/17/2019 M25.511 Pain in right shoulder Santo, Fabian, DO, MPH 04/17/2019 M25.512 Pain in left shoulder Santo, Fabian, DO, MPH 04/17/2019 M99.07 Segmental and somatic dysfunction of upper Santo, Fabian, DO, MPH extremity 04/17/2019 Z79.891 senior living (current) use of opiate analgesic Santo, Fabian [...] hip Santo, Fabian, DO, MPH 03/18/2019 Z79.891 senior living (current) use of opiate analgesic Santo, Fabian , DO, MPH 02/18/2019 G89.29 Other chronic pain Santo, Fabian, DO, MPH 02/18/2019 M54.2 Cervicalgia Santo, Fabian, DO, MPH 02/18/2019 M54.6 Pain in thoracic spine Santo, Fabian, DO, MPH 02/18/2019 M54.5 Low back pain Santo, Fabian, DO, MPH 02/18/2019 Z79.891 senior living (current) use of opiate analgesic Santo, Fabian [...] pain Santo, Fabian, DO, MPH 01/19/2019 Z79.891 senior living (current) use of opiate analgesic Santo, Fabian [...] Santo, Fabian, DO, MPH region 12/12/2018 Z79.891 senior living (current) use of opiate analgesic Santo, Fabian [...] due to excess Santo, Fabian, DO, MPH [facility] 11/20/2018 Z79.891 senior living (current) use of opiate analgesic Santo, Fabian , DO, MPH Plan of Treatment Future Appointment(s):06/19/2019 9:30 am - Fabian Santo DO, MPH at Main Office as Of 07/18/1411 - Santo, Fabian, DO, MPHG89.29 Other chronic painComments:Chronic. Symptoms and complaints discussed and reviewed today. No significant changes in physical findings. Continue current medical pain management.M54.2 CervicalgiaComments:Chronic. Symptoms and complaints discussed and reviewed today. No significant changes in physical findings. Continue current medical pain management.M54.6 Pain in thoracic spineComments: Chronic.Symptoms and complaints discussed and reviewed today. No significant changes in physical findings. Continue current medical pain management.M25.511 Pain in right shoulderComments:Chronic. Symptoms and complaints discussed and reviewed today. No significant changes in physical findings. Continue current medical pain management.M25.512 Pain in left shoulderComments:Chronic. Symptoms and complaints discussed and reviewed today. No significant changes in physical findings. Continue current medical pain management.M54.5 Low back painComments: Chronic. Symptoms and complaints discussed and reviewed today.No changes in physical findings. Patient is stable and comfortable when current medical therapy is rendered.Z79.891 senior living (current) use of opiate analgesicNew Labs: Urine Drug Screen, Ordered: 05/19/19Comments:Urine drug screen sample taken today to monitor opiate use and to monitor use of illicit substances.Will discuss results at next appointment.The following tests were ordered:6 AM, AMPH , VERONICA, JAYESH, BUP, CARIS, COCM, ETG, FENT, MCSHSG, OPI, OXY, PCP, TAPEN, XTSY , ZOLP. A urine drug test (UDT) was [...] while maintaining satisfactory side effect profile andminimizing moth exterminator end-organ damage. Importance of regular nutrition throughout the day discussed.Activity as toleratedContinue with PCP Functional Status Description No Information Available Mental Status Description No Information Available Referrals Description No Information Available
--- OUTSIDE RECORDS SUMMARY | 2019-06-15 10:28 | XMS REPORT | Continuity of Care Document ---
:1985 External Reference #:[id number] Author Name Chasity Boo NP (transmitted by agent of provider Ronda Saavedra) Address [address] [place] [address] Care Team Providers Name Role Phone Frank Almeida MD - Family Medicine Care Team Information Machine Silk Screen Printer Problems Description No Information Available Social History [...] Medications SIG Qnty Indications Ordering Date Provider Hydrocortisone-Acetic 4 drops twice a 3units Clarence Painter, 03/31/2019 Acid day for itching M.D. 1-2% Solution as needed. Fluocinolone Acetonide 5 drops as 1units Clarence Painter, 03/31/2019 Ear Drops needed in the M.D. 0.01% Oil affected ear twice a day. Humira Unknown 40mg/0.4ML PSKT Phendimetrazine Unknown Tartrate 35mg Tablets Meloxicam Unknown 15mg Tablets Leflunomide Unknown 20mg Tablets Alprazolam as needed Unknown 0.25mg Tablets Oxycodone HCL Unknown 5mg Capsules Immunizations Description No Information Available Vital Signs Date Vital Result Comment 04/29/2019 11:44am Weight 337.00 lb Height 66 inches 5'6" BMI (Body Mass Index) 54.4 kg/m2 BP Systolic 149 mmHg BP Diastolic 110 mmHg Heart Rate 90 /min O2 % BldC Oximetry 97 % Body Temperature 98.1 F Pain Level 7 03/31/2019 11:15am Weight 337.00 lb Height 66 inches 5'6" BMI (Body Mass Index) 54.4 kg/m2 BP Systolic 170 mmHg BP Diastolic 111 mmHg Heart Rate 99 /min O2 % BldC Oximetry 97 % Body Temperature 97.4 F Pain Level 0 Results Test Acquired Date Facility Test Result H/L Range Note Laboratory test 04/21/2019 [facility] Surgical SEE RESULT [address] [place] [address] [phone] Laboratory test 03/21/2019 [facility] Cytology SEE RESULT 2 , [address] [place] [address] [phone] 1 SEE RESULT BELOW Name: RABIA YORK : [address]: Clarence Painter MD Acct: [id number] Unit: [id number] AGE: 33 Location: [facility] Re04/21/19 SEX: F Status: REG REF SPEC: [id number] COLEMAN: 04/21/19-[address] [facility] [address]: Clarence Painter MD REQ: [id number] RECD: 04/21/19 STATUS: SOUT _ ORDERED: LEVEL 5 COMMENTS: [id number] FINAL DIAGNOSIS Thyroid, right, hemithyroidectomy: -- Follicular [...] CONTINUED ON NEXT PAGE DEPARTMENT OF PATHOLOGY, [address] [place] [address] Sukhdeep Schulz M.D. Director [facility] # [id number] schumacher-pink well-defined encapsulated focally cystic mass with scant focal hemorrhage which abuts the inked capsule. The remaining cut surface is colloidal brown-mcgowan. The specimen is inked, serially sectioned and passenger service representative sections are submitted in cassettes A through J to include mass in cassettes B through I. Signed by and Reported on: Kylah Arcos MD 04/23/19 1419 END OF REPORT DEPARTMENT OF PATHOLOGY, [address] [place] [address] Sukhdeep Schulz M.D. Director [facility] # [id number] 2 [id number] 3 SEE RESULT BELOW Name: RABIA YORK : [address]: Clarence Painter MD Acct: [id number] Unit: [id number] AGE: 33 Location: [facility] Re03/21/19 SEX: F Status: REG REF SPEC: [id number] COLEMAN: 03/21/[address] [facility] [address]: Clarence Painter MD REQ: [id number] RECD: 03/21/19 STATUS: SOUT _ ORDERED: [facility] COMMENTS: [id number] FINAL DIAGNOSIS Thyroid, right, fine needle aspiration: -- Benign thyroid nodule, chronic lymphocytic thyroiditis ([place] class II). The specimen demonstrates abundant watery [...] CONTINUED ON NEXT PAGE DEPARTMENT OF PATHOLOGY, [address] [place] [address] Sukhdeep Schulz M.D. Director [facility] # [id number] GROSS DESCRIPTION 1 Alcohol fixed slide(s) received from clinician, 5 Air dried slide(s) and Needle rinse in CytoLyt solution for thin layer non-vision rehabilitation therapist test.(clear) Signed by and Reported on: Kylah Arcos MD 03/24/19 1219 END OF REPORT DEPARTMENT OF PATHOLOGY, [address] [place] [address] Sukhdeep Schulz M.D. Director [facility] # [id number] Procedures Date Code Description Status 03/21/2019 41803 Fine Needle Aspiration Biopsy Inl Ultrasound Guidance Completed 03/06/2019 80426 Ultrasound Head/Neck Completed 03/06/2019 48696 Fiberoptic Laryngoscopy,Diag. Completed Medical Devices Description No Information Available Encounters Type Date Location Provider Dx Diagnosis Office Visit 03/31/2019 Main Office Clarence Painter M.D. L21.9 Seborrheic 11:00a dermatitis, unspecified E04.2 Nontoxic multinodular goiter Office Visit 03/06/2019 9:00a Main Office Clarence Painter E04.2 Nontoxic multinodular M.D. goiter R49.0 Dysphonia E66.9 Obesity, unspecified Assessments Date Code Description Provider 03/31/2019 L21.9 Seborrheic dermatitis, unspecified Clarence Painter M.D. 03/31/2019 E04.2 Nontoxic multinodular goiter Clarence Painter M.D. 03/21/2019 E04.2 Nontoxic multinodular goiter Clarence Painter M.D. 03/06/2019 E04.2 Nontoxic multinodular goiter Clarence Painter M.D. 03/06/2019 R49.0 Dysphonia Clarence Painter M.D. 03/06/2019 E66.9 Obesity, unspecified Clarence Painter M.D. Plan of Treatment No Information Available Functional Status Description No Information Available Mental Status Description No Information Available Referrals Refer to Reason for Referral Status Appt Date Clarence Painter M.D. NO AUTH REQ FOR SURGERY Created [address] [place] [address] [phone]
[2019-06-15 10:32] VITALS: BP 153/101
--- NOTE | 2019-06-15 11:11 | UC ---
Complaint Female HPI - HPI Summary HPI Summary: Pt presents with c/o sudden onset of urinary pressure, frequency, and urgency X 1 week. - History Of Current Complaint Chief Complaint: UCGU Stated Complaint: URINARY Time Seen by Provider: 06/15/19 11:02 Hx Obtained From: Patient Hx Last Menstrual Period: 06/23/14 ?: No Onset/Duration: Sudden Onset, Lasting Days, Still Present Timing: Constant Severity Initially: Mild Severity Currently: Mild Pain Intensity: 0 Character: Dull, Burning Aggravating Factor(s): Urination Alleviating Factor(s): Nothing Associated Signs And Symptoms: Positive: Negative - Risk Factors Ectopic Risk Factor: Maternal Age ^ 30 Ovarian Torsion Risk Factor: Reproductive Age - Allergies/Home Medications Allergies/Adverse Reactions: Allergies Allergy/AdvReac Type Severity Reaction Status Date / Time amoxicillin Allergy Hives Verified 06/15/19 10:32 morphine Allergy Anaphylatic Verified 06/15/19 10:32 Shock Penicillins Allergy Anaphylatic Verified 06/15/19 10:32 Shock sulfamethoxazole Allergy Anaphylatic Verified 06/15/19 10:32 [From Bactrim] Shock trimethoprim [From Bactrim] Allergy Anaphylatic Verified 06/15/19 10:32 Shock Home Medications: Home Medications Metoprolol Tartrate TAB* [Lopressor TAB*] 25 mg PO BID 06/15/19 [History Confirmed 06/15/19] PMH/Surg Hx/FS Hx/Imm Hx Previously Healthy: Yes - Surgical History Surgical History: Yes Surgery Procedure, Year, and Place: Cyst removed from chest and right side base of neck 2010. - Family History Known Family History: Positive: Unknown - Social History Occupation: Employed Full-time Lives: With Family Alcohol Use: None Substance Use Type: None Substance Use Comment - Amount & Last Used: percocet Smoking Status (MU): Former Smoker Type: Cigarettes Amount Used/How Often: 1/2 ppd Have You Smoked in the Last Year: Yes When Did the Patient Quit Smoking/Using Tobacco: 03/2014 Review of Systems All Other Systems Reviewed And Are Negative: Yes Constitutional: Positive: Negative Skin: Positive: Negative Eyes: Positive: Negative ENT: Positive: Negative Respiratory: Positive: Negative Cardiovascular: Positive: Negative Gastrointestinal: Positive: Negative Genitourinary: Positive: Dysuria, Frequency, Urgency Motor: Positive: Negative Neurovascular: Positive: Negative Musculoskeletal: Positive: Negative Neurological: Positive: Negative Psychological: Positive: Negative Is Patient Immunocompromised?: No Physical Exam Triage Information Reviewed: Yes Appearance: Obese Vital Signs: Initial Vital Signs Temp 98.5 F 06/15/19 10:28 Pulse 96 06/15/19 10:28 Resp 18 06/15/19 10:28 BP 153/101 06/15/19 10:28 Pulse Ox 99 06/15/19 10:28 Vital Signs Reviewed: Yes Eye Exam: Normal ENT Exam: Normal ENT: Positive: Hearing grossly normal Dental Exam: Normal Neck exam: Normal Respiratory Exam: Normal Cardiovascular Exam: Normal Abdominal Exam: Normal Abdomen Description: Positive: Nontender Musculoskeletal Exam: Normal Neurological Exam: Normal Psychological Exam: Normal Skin Exam: Normal Complaint Female Dx - Differential Dx/Diagnosis Differential Diagnosis/HQI/PQRI: Ureteral Stone, Urinary Tract Infection Provider Diagnosis: UTI (urinary tract infection) Discharge ED - Sign-Out/Discharge Documenting (check all that apply): Patient Departure All imaging exams completed and their final reports reviewed: No Studies - Discharge Plan Condition: Stable Disposition: HOME Prescriptions: Nitrofurantoin Monohyd/M-Cryst [Macrobid 100 mg Capsule] 100 mg PO Q12H #10 cap Phenazopyridine TAB* [Pyridium 100 mg TAB*] 100 mg PO Q8H #3 tab Patient Education Materials: Nitrofurantoin Combination (By mouth), Urinary Tract Infection in Women (ED) Referrals: Frank Almeida MD [Primary Care Provider] - If Needed - Billing Disposition and Condition Condition: STABLE Disposition: Home
--- NOTE | 2019-06-17 14:50 | UC ---
- Progress Note Progress Note: please notify patient stop macro bid doxy e rxed 100mg twice daily #14 Course/Dx - Diagnoses Provider Diagnoses: UTI (urinary tract infection) Discharge ED - Sign-Out/Discharge Documenting (check all that apply): Post-Discharge Follow Up All imaging exams completed and their final reports reviewed: No Studies - Discharge Plan Condition: Stable Disposition: HOME Prescriptions: Nitrofurantoin Monohyd/M-Cryst [Macrobid 100 mg Capsule] 100 mg PO Q12H #10 cap Phenazopyridine TAB* [Pyridium 100 mg TAB*] 100 mg PO Q8H #3 tab Patient Education Materials: Nitrofurantoin Combination (By mouth), Urinary Tract Infection in Women (ED) Referrals: Frank Almeida MD [Primary Care Provider] - If Needed - Billing Disposition and Condition Condition: STABLE Disposition: Home
== END 2019-06-15 11:17 | disposition home or self-care (01) ==
LOC: UCCORT 10:20
DX: N39.0 Urinary tract infection, site not specified (principal); Z88.0 Allergy status to penicillin; Z88.5 Allergy status to narcotic agent; Z88.2 Allergy status to sulfonamides
CPT/HCPCS: 81003; 87077; 87086; 87186; 99212; G0463

== ENCOUNTER 2019-07-26 08:27 | Emergency (ER) | payer OTHER ==
--- OUTSIDE RECORDS SUMMARY | 2019-07-26 08:53 | XMS REPORT | Continuity of Care Document ---
:1985 External Reference #:[id number] Author Name Fabian Santo DO, MPH Address [address] [place] [address], [address] [place] [address] Care Team Providers Name Role Phone Lexi Johnson M.D. - Family Medicine Care Team Information Application Development Intern Frank Almeida M.D. - Family Care Team Information Application Development Intern Medicine Problems Description No Information Available Social History Type Date Description Comments Sex Unknown Cigarette Use Former Cigarette Smoker ETOH Use Denies alcohol use Tobacco Use Start: Unknown End: Unknown Patient is a former smoker Smoking Status Reviewed: 07/20/19 Patient is a former smoker Allergies, Adverse Reactions, Alerts Active Allergies Reaction Severity Comments Date Penicillin Anaphylaxis 05/14/2016 Morphine Anaphylaxis 05/14/2016 Bactrim Urticaria, swelling of face 05/14/2016 Amoxicillin Anaphylaxis 05/14/2016 Medications Active Medications SIG Qnty Indications Ordering Date Provider Oxycodone HCL si by mouth 120tabs Fabian Santo, 05/24/2017 5mg Tablets every 6 hours as [facility] directed chronic pain patient Xanax si by mouth Unknown 0.25mg Tablets every 8 hours as directed chronic pain patient Furosemide by mouth every Unknown 40mg Tablets day Meloxicam si by mouth Unknown 15mg Tablets every day as needed Leflunomide 1 by mouth every Unknown 20mg Tablets day Levothyroxine Sodium 1 by mouth every Unknown day 25mcg Tablets Immunizations Description No Information Available Vital Signs Date Vital Result Comment 07/20/2019 10:26am BP Systolic 140 mmHg BP Diastolic 86 mmHg Heart Rate 82 /min Respiratory Rate 20 /min Height 66 inches 5'6" Weight 341.00 lb Pain Level 7 Pain at this time. Pain Level With Medicine 6 on average with meds Pain Level Without Medicine 9 without meds BMI (Body Mass Index) 55.0 kg/m2 06/19/2019 9:44am BP Systolic 140 mmHg BP Diastolic 82 mmHg Heart Rate 88 /min Respiratory Rate 20 /min Height 66 inches 5'6" Weight 340.00 lb Pain Level 8 Pain Level With Medicine 7 Pain Level Without Medicine 9 BMI (Body Mass Index) 54.9 kg/m2 Results Description No Information Available Procedures Date Code Description Status 04/17/2019 03558 Omt 3-4 Body Regions Completed Medical Devices Description No Information Available Encounters Type Date Location Provider Dx Diagnosis Office Visit 06/19/2019 Main Office as Of Fabian Santo DO G89.29 Other chronic pain 9:30a 07/18/13 MPH M54.2 Cervicalgia M54.5 Low back pain M25.512 Pain in left shoulder M25.511 Pain in right shoulder Z79.891 longterm (current) use of opiate analgesic Office Visit 05/19/2019 9:45a Main Office as Fabian Santo G89.29 Other chronic Of 07/18/13 DO, MPH pain M54.2 Cervicalgia M54.6 Pain in thoracic spine M25.511 Pain in right shoulder M25.512 Pain in left shoulder M54.5 Low back pain 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 Office Visit 04/17/2019 9:45a Main Office as Fabian Santo G89.29 Other chronic Of 07/18/13 DO, MPH pain M54.2 Cervicalgia M99.01 Segmental and somatic dysfunction of cervical region M54.6 Pain in thoracic spine M99.02 Segmental and somatic dysfunction of thoracic region M25.511 Pain in right shoulder M25.512 Pain in left shoulder M99.07 Segmental and somatic dysfunction of upper extremity Z79.891 longterm (current) use of opiate analgesic Office Visit 03/18/2019 9:00a Main Office as Fabian Santo G89.29 Other chronic Of 07/18/13 DO, MPH pain M54.2 Cervicalgia M54.6 Pain in thoracic spine M54.5 Low back pain M25.551 Pain in right hip M25.552 Pain in left hip 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 Office Visit 02/18/2019 9:15a Main Office as SantoFabian reese, G89.29 Other chronic Of 07/18/13 DO, MPH pain M54.2 Cervicalgia M54.6 Pain in thoracic spine M54.5 Low back pain Z79.891 longterm (current) use of opiate analgesic Office Visit 01/19/2019 10:15a Main Office as Santo, Fabian, G89.29 Other chronic Of 07/18/13 DO, MPH pain M54.2 Cervicalgia M54.6 Pain in thoracic spine M25.551 Pain in right hip M25.552 Pain in left hip M54.5 Low back pain 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 Assessments Date Code Description Provider 07/20/2019 G89.29 Other chronic pain Santo, Fabian, DO, MPH 07/20/2019 M54.2 Cervicalgia Santo, Fabian, DO, MPH 07/20/2019 M54.5 Low back pain Santo, Fabian, DO, MPH 07/20/2019 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 Santo, Fabian , DO, MPH 07/20/2019 Z13.31 Encounter for screening for depression Santo, Fabian, DO, MPH 06/19/2019 G89.29 Other chronic pain Santo, Fabian, DO, MPH 06/19/2019 M54.2 Cervicalgia Santo, Fabian, DO, MPH 06/19/2019 M54.5 Low back pain Santo, Fabian, DO, MPH 06/19/2019 M25.512 Pain in left shoulder Santo, Fabian, DO, MPH 06/19/2019 M25.511 Pain in right shoulder Santo, Fabian, DO, MPH 06/19/2019 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 Santo, Fabian , DO, MPH 05/19/2019 G89.29 Other chronic pain Santo, Fabian, DO, MPH 05/19/2019 M54.2 Cervicalgia Santo, Fabian, DO, MPH 05/19/2019 M54.6 Pain in thoracic spine Santo, Fabian, DO, MPH 05/19/2019 M25.511 Pain in right shoulder Santo, Fabian, DO, MPH 05/19/2019 M25.512 Pain in left shoulder Santo, Fabian, DO, MPH 05/19/2019 M54.5 Low back pain Santo, Fabian, DO, MPH 05/19/2019 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 Santo, Fabian , DO, MPH 04/17/2019 G89.29 Other chronic pain Santo, Fabian, DO, MPH 04/17/2019 M54.2 Cervicalgia Santo, Fabian, DO, MPH 04/17/2019 M99.01 Segmental and somatic dysfunction of Santo, Fabian, DO, MPH cervical region 04/17/2019 M54.6 Pain in thoracic spine Santo, Fabian, DO, MPH 04/17/2019 M99.02 Segmental and somatic dysfunction of Santo, Fabian, DO, MPH thoracic region 04/17/2019 M25.511 Pain in right shoulder Santo, Fabian, DO, MPH 04/17/2019 M25.512 Pain in left shoulder Santo, Fabian, DO, MPH 04/17/2019 M99.07 Segmental and somatic dysfunction of upper Santo, Fabian, DO, MPH extremity 04/17/2019 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 Santo, Fabian , DO, MPH 03/18/2019 G89.29 Other chronic pain Santo, Fabian, DO, MPH 03/18/2019 M54.2 Cervicalgia Santo, Fabian, DO, MPH 03/18/2019 M54.6 Pain in thoracic spine Santo, Fabina, DO, MPH 03/18/2019 M54.5 Low back pain Santo, Fabian, DO, MPH 03/18/2019 M25.551 Pain in right hip Santo, Fabian, DO, MPH 03/18/2019 M25.552 Pain in left hip Santo, Fabian, DO, MPH 03/18/2019 Z79.891 longterm (current) use of opiate analgesic Santo, Fabian , DO, MPH 02/18/2019 G89.29 Other chronic pain Fabian Santo DO, MPH 02/18/2019 M54.2 Cervicalgia Faiban Santo DO, MPH 02/18/2019 M54.6 Pain in thoracic spine SantoFabian reese DO, MPH 02/18/2019 M54.5 Low back pain Fabian Santo DO, MPH 02/18/2019 Z79.891 longterm (current) use of opiate analgesic Fabian Santo DO, MPH 01/19/2019 G89.29 Other chronic pain Fabian Santo DO, MPH 01/19/2019 M54.2 Cervicalgia Fabian Santo DO, MPH 01/19/2019 M54.6 Pain in thoracic spine Fabian Santo DO, MPH 01/19/2019 M25.551 Pain in right hip Fabian Santo DO, MPH 01/19/2019 M25.552 Pain in left hip Fabian Santo DO, MPH 01/19/2019 M54.5 Low back pain Fabian Santo DO, MPH 01/19/2019 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 Fabian Santo DO, MPH Plan of Treatment Future Appointment(s):08/17/2019 10:15 am - Fabian Santo DO, MPH at Main Office as Of 07/18/1401 - Fabian Santo DO, MPHG89.29 Other chronic [...] comfortable when current medical therapy is rendered.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New Labs:Urine Drug Screen, Ordered: 07/20/19Comments:Urine drug screen sample taken today to monitor [...] controlled substances and is considered standard of care.Z13.31 Encounter for screening for depressionComments:PHQ-9 Depression Screen administered today, results were Positive at this time. Followed by PCP. Will follow as pertains to their pain. Patient seems to be stable today. Reassurance and counseling. Patient seems to be stable today.AllComments:Continue current medical pain management; injection therapy, osteopathic [...] while maintaining satisfactory side effect profile andminimizing assistant terminal manager end-organ damage. Importance of regular nutrition throughout the day discussed.Activity as toleratedContinue with PCP Functional Status Description No Information Available Mental Status Description No Information Available Referrals Description No Information Available
--- OUTSIDE RECORDS SUMMARY | 2019-07-26 08:53 | XMS REPORT | Continuity of Care Document ---
:1985 External Reference #:[id number] Author Name Fabian Santo DO, MPH Address [address] [place] [address], [address] [place] [address] Care Team Providers Name Role Phone Lexi Johnson M.D. - Family Medicine Care Team Information Skin Care Instructor Frank Almeida M.D. - Family Care Team Information Skin Care Instructor Medicine Problems Description No Information Available Social [...] Available Vital Signs Date Vital Result Comment 06/19/2019 9:44am BP Systolic 140 mmHg BP Diastolic 82 mmHg Heart Rate 88 /min Respiratory Rate 20 /min Height 66 inches 5'6" Weight 340.00 lb Pain Level 8 Pain Level With Medicine 7 Pain Level Without Medicine 9 BMI (Body Mass Index) 54.9 kg/m2 05/19/2019 10:13am BP Systolic 132 mmHg BP Diastolic 80 mmHg Heart Rate 84 /min Respiratory Rate 20 /min Height 66 inches 5'6" Weight 338.00 lb Pain Level 8 Pain at this time. Pain Level With Medicine 7 on average with meds Pain Level Without Medicine 9 without meds BMI (Body Mass Index) 54.5 kg/m2 Results Description No Information Available Procedures Date Code Description Status 04/17/2019 50275 Omt 3-4 Body Regions Completed Medical Devices Description No Information Available Encounters Type Date Location Provider Dx Diagnosis Office Visit 05/19/2019 Main Office as Of Fabian Santo DO, G89.29 Other chronic pain 9:45a 07/18/13 MPH M54.2 Cervicalgia M54.6 Pain in thoracic spine M25.511 Pain in right shoulder M25.512 Pain in left shoulder M54.5 Low back pain Z79.891 FPC (current) use of opiate analgesic Office Visit [...] and somatic dysfunction of upper extremity Z79.891 long term (current) use of opiate analgesic Office Visit 03/18/2019 9:00a Main Office as Fabian Santo G89.29 Other chronic Of 07/18/13 DO, MPH pain M54.2 Cervicalgia M54.6 Pain in thoracic spine M54.5 Low back pain M25.551 Pain in right hip M25.552 Pain in left hip Z79.891 long term (current) use of opiate analgesic Office Visit 02/18/2019 9:15a Main Office as Fabian Santo G89.29 Other chronic Of 07/18/13 DO, MPH pain M54.2 Cervicalgia M54.6 Pain in thoracic spine M54.5 Low back pain Z79.891 FPC (current) use of opiate analgesic Office Visit 01/19/2019 10:15a Main Office as Fabian Santo, G89.29 Other chronic Of 07/18/13 DO, MPH pain M54.2 Cervicalgia M54.6 Pain in thoracic spine M25.551 Pain in right hip M25.552 Pain in left hip M54.5 Low back pain Z79.891 long term (current) use of opiate analgesic Assessments Date Code Description Provider 06/19/2019 G89.29 Other chronic pain Santo, Fabian, DO, MPH 06/19/2019 M54.2 Cervicalgia Santo, Fabian, DO, MPH 06/19/2019 M54.5 Low back pain Santo, Fabian, DO, MPH 06/19/2019 M25.512 Pain in left shoulder Santo, Fabian, DO, MPH 06/19/2019 M25.511 Pain in right shoulder Santo, Fabian, DO, MPH 06/19/2019 Z79.891 FPC (current) use of opiate analgesic Santo, Fabian [...] pain Santo, Fabian, DO, MPH 05/19/2019 Z79.891 long term (current) use of opiate analgesic Santo, Fabian [...] Santo, Fabian, DO, MPH extremity 04/17/2019 Z79.891 long term (current) use of opiate analgesic Santo, Fabian , DO, MPH 03/18/2019 G89.29 Other chronic pain Santo, Fabian, DO, MPH 03/18/2019 M54.2 Cervicalgia Santo, Fabian, DO, MPH 03/18/2019 M54.6 Pain in thoracic spine Santo, Fabian, DO, MPH 03/18/2019 M54.5 Low back pain Santo, Fabian, DO, MPH 03/18/2019 M25.551 Pain in right hip Santo, Fabian, DO, MPH 03/18/2019 M25.552 Pain in left hip Satno, Fabian, DO, MPH 03/18/2019 Z79.891 FPC (current) use of opiate analgesic Santo, Fabian , DO, MPH 02/18/2019 G89.29 Other chronic pain Santo, Fabian, DO, MPH 02/18/2019 M54.2 Cervicalgia Santo, Fabian, DO, MPH 02/18/2019 M54.6 Pain in thoracic spine Santo, Fabian, DO, MPH 02/18/2019 M54.5 Low back pain Santo, Fabian, DO, MPH 02/18/2019 Z79.891 long term (current) use of opiate analgesic Santo, Fabian , DO, MPH 01/19/2019 G89.29 Other chronic pain Santo, Fabian, DO, MPH 01/19/2019 M54.2 Cervicalgia Santo, Fabian, DO, MPH 01/19/2019 M54.6 Pain in thoracic spine Santo, Fabian, DO, MPH 01/19/2019 M25.551 Pain in right hip Santo, Fabian, DO, MPH 01/19/2019 M25.552 Pain in left hip Fabian Santo DO MPH 01/19/2019 M54.5 Low back pain Fabian Santo DO MPH 01/19/2019 Z79.891 long term (current) use of opiate analgesic Fabian Santo DO MPH Plan of Treatment Future Appointment(s):07/20/2019 10:15 am - Fabian Santo DO MPH at Main Office as Of 07/18/1400 - Fabian Santo DO, MPHG89.29 Other chronic [...] and comfortable when current medical therapy is rendered.M25.512 Pain in left shoulderComments:Chronic. Symptoms and complaints discussed and reviewed today. No significant changes in physical findings. Continue current medical pain management.M25.511 Pain in right shoulderComments: Chronic. Symptoms and complaints discussed and reviewed today. No significant changes in physical findings. Continue current medical pain management.Z79.891 long term (current) use of opiate analgesicNew Labs:Urine Drug Screen, Ordered: 06/19/19Comments:Urine drug screen sample taken today to monitor opiate use and to monitor use of illicit substances.Will discuss results at next appointment.The following tests were ordered:6 AM, AMPH, VERONICA, JAYESH, BUP, CARIS , COCM, ETG, FENT, MCSHSG, OPI, OXY, PCP, [...] while maintaining satisfactory side effect profile andminimizing senior care end-organ damage. Importance of regular nutrition throughout the day discussed.Activity as toleratedContinue with PCP Functional Status Description No Information Available Mental Status Description No Information Available Referrals Description No Information Available
--- OUTSIDE RECORDS SUMMARY | 2019-07-26 08:53 | XMS REPORT | Summary of Care ---
:1985 Author Organization [facility] Address [address] [place] [id number] Care Team Providers Name Role Phone Frank Almeida MD Primary Care Provider Reason for Visit Reason Comments Follow-up Encounter Details Date Type Department Care Team Description 07/15/2019 Office Visit Cielo Gavin, Psoriasis arthropathica ( Primary Dx); Rheumatology MD Dave High risk medication use [address] [id number] [place] [address] [phone] Allergies Active Allergy Reactions Severity Noted Date Comments Sulfamethoxazole-Trimethoprim 09/25/2017 Morphine And Related 09/25/2017 Penicillins 09/25/2017 documented as of this encounter (statuses as of 07/16/2019) Medications Medication Sig Dispensed Refills Start Date End Date Status betamethasone Apply topically 0 Active dipropionate Two Times Daily (DIPROLENE) 0.05 % cream oxyCODONE 0 09/24/2017 Active (ROXICODONE) 5 MG immediate release tablet alprazolam (XANAX) TAKE ONE TABLET 1 03/19/2018 Active 0.25 MG tablet BY MOUTH THREE TIMES A DAY MAXIMUM DAILY DOSE THREE TABLETS ibuprofen 0 04/18/2018 Active (ADVIL,MOTRIN) 400 MG tablet furosemide (LASIX) 20 0 08/27/2018 Active MG tablet Meloxicam 15 MG Oral TAKE ONE TABLET 30 tablet 11 04/27/2019 Active Tablet (MOBIC) BY MOUTH EVERY DAY Leflunomide 20 MG TAKE ONE TABLET 30 tablet 11 04/27/2019 Active Oral Tablet BY MOUTH EVERY (ARAVA)Indications: DAY Psoriatic arthritis Levothyroxine Sodium 0 07/03/2019 Active 50 MCG Oral Tablet (SYNTHROID, LEVOTHROID) Metoprolol Tartrate 0 04/01/2019 Active 25 MG Oral Tablet (LOPRESSOR) Diclofenac Sodium 1 % Apply 2 g 1 Tube 11 07/15/2019 08/14/2019 Active Transdermal Gel topically Four (VOLTAREN) times daily apply small amount to painful joints documented as of this encounter (statuses as of 07/16/2019) Active Problems No known active problemsdocumented as of this encounter (statuses as of 2019) Social History Tobacco Use Types Packs/Day Years Used Date Current Every Day Smoker Cigarettes Smokeless Tobacco: Former User Tobacco Cessation: Ready to Quit: No; Counseling Given: No Alcohol Use Drinks/Week oz/Week Comments No Sex Assigned at Date Recorded Not on file Job Start Date Occupation Industry Not on file Not on file Not on file Travel History Travel Start Travel End No recent travel history available. documented as of this encounter Last Filed Vital Signs Vital Sign Reading Time Taken Comments Blood Pressure 169/87 07/15/2019 10:40 AM EST Pulse 89 07/15/2019 10:40 AM EST Temperature 37.2 07/15/2019 10:40 AM EST C (98.9 F) Respiratory Rate 17 07/15/2019 10:40 AM EST Oxygen Saturation 96% 07/15/2019 10:40 AM EST Inhaled Oxygen Concentration - - Weight 155.1 kg (342 lb) 07/15/2019 10:40 AM EST Height 167.6 cm (5' 6") 07/15/2019 10:40 AM EST Body Mass Index 55.2 07/15/2019 10:40 AM EST documented in this encounter Patient Instructions Patient InstructionsDave Gavin MD - 07/15/2019 10:30 AM ESTStop leflunomide and meloxicam 1 week before and 1 week after thyroid surgery. documented in this encounter Progress Notes Dave Gavin MD - 07/15/2019 10:30 AM EST Subjective: Patient ID: Rabia York is a 34 y.o. female. She has psoriatic arthritis. She was last seen 4 months ago. At that time, her disease was active,and I switched her from Humira to Enbrel. She also had continued Arava and meloxicam. Recently thepatient called stating that she was just diagnosed with thyroid cancer. I instructed to stop the Enbrel and continue Arava and meloxicam without changes. Since then, she has been hurting more. The pain is localized in her muscles as well as in her shoulders, in her knees. Intensity can be as bad as 8/10, not associated with significant swelling. Her rheumatologic review of systems is otherwise unremarkable. She continues to take oxycodone from her pain physician. MUSCULOSKELETAL EXAM: She has multiple tender points. She does not have any active synovitis. She had mild psoriatic rash in her hands. ASSESSMENT: 1. Psoriatic arthritis and psoriasis mildly active, likely a result of stopping Enbrel. 2. Diffuse myalgia, likely related to fibromyalgia. PLAN: 1. I would continue the Arava, meloxicam without changes. I did instruct her to stop the Arava and meloxicam 1 week before and 1 week after surgery. 2. Given the recent thyroid cancer diagnosis, I will not prescribe any medications until after her surgery. She agreed and understood. 3. I will see her back in 3 months. JEFF Camarillo has a past medical history of Headache. Rabia has a past surgical history that includes Cyst Removal (2010). Her family history includes Arthritis in her mother. Rabia reports that she has been smoking cigarettes. She has quit using smokeless tobacco. She reports that she does not drink alcohol or use drugs. Rabia has a current medication list which includes the following prescription( s): alprazolam, betamethasone dipropionate, diclofenac sodium, furosemide, ibuprofen, leflunomide, levothyroxine, meloxicam, metoprolol tartrate, and oxycodone. Rabia is allergic to bactrim [sulfamethoxazole-trimethoprim]; morphine and related; and penicillins. Review of Systems Constitutional: Negative. HENT: Negative. Eyes: Negative. Respiratory: Negative. Cardiovascular: Negative. Gastrointestinal: Negative. Endocrine: Negative. Genitourinary: Negative. Musculoskeletal: Positive for arthralgias and myalgias. Negative for joint swelling. Skin: Negative. Allergic/Immunologic: Negative. Neurological: Negative. Hematological: Negative. Psychiatric/Behavioral: Negative. Objective: Physical Exam Vitals signs reviewed. Constitutional: Appearance: She is well-developed. HENT: Head: Normocephalic and atraumatic. Eyes: Conjunctiva/sclera: Conjunctivae normal. Neck: Thyroid: No thyromegaly. Trachea: No tracheal deviation. Cardiovascular: Rate and Rhythm: Normal rate and regular rhythm. Pulmonary: Effort: Pulmonary effort is normal. No respiratory distress. Musculoskeletal: General: Tenderness present. No swelling or deformity. Skin: General: Skin is warm and dry. Neurological: Mental Status: She is alert and oriented to person, place, and time. documented in this encounter Plan of Treatment Date Type Specialty Care Team Description 10/13/2019 Office Visit Rheumatology Dave Gavin MD [address] [place] [address] [address] [place] [address] [phone] Health Maintenance Due Date Last Done Comments MMR Vaccines (1 of 1 - Standard 1988 series) Varicella Vaccines (1 of 2 - 1988 2-dose childhood series) Pneumococcal Vaccine: Pediatrics 1993 (0 to 5 Years) and At-Risk Patients (6 to 64 Years) (1 of 1 - PPSV23) DTaP,Tdap,and Td Vaccines (1 - 1994 Tdap) HIV Screening 2000 Cervical Cancer Screening 5 years 2008 Influenza Vaccine 03/17/2019 Pneumococcal Vaccine: 65+ Years (1 2052 of 2 - PCV13) HIB Vaccines Aged Out No longer eligible based on patient's age to complete this topic Hepatitis A Vaccines Aged Out No longer eligible based on patient's age to complete this topic Hepatitis B Vaccines Aged Out No longer eligible based on patient's age to complete this topic IPV Vaccines Aged Out No longer eligible based on patient's age to complete this topic documented as of this encounter Procedures Procedure Name Priority Date/Time Associated Comments Diagnosis CREATININE WITH GFR Routine 07/15/2019 11:02 High risk Results for this AM EST medication use procedure are in the results section. SEDIMENTATION RATE, Routine 07/15/2019 11:02 High risk Results for this AUTOMATED AM EST medication use procedure are in the results section. CBC AND DIFFERENTIAL Routine 07/15/2019 11:02 High risk Results for this AM EST medication use procedure are in the results section. INFLAMMATORY Routine 07/15/2019 11:02 High risk Results for this C-REACTIVE PROTEIN AM EST medication use procedure are in (CRP) the results section. ALT Routine 07/15/2019 11:02 High risk Results for this AM EST medication use procedure are in the results section. AST Routine 07/15/2019 11:02 High risk Results for this AM EST medication use procedure are in the results section. documented in this encounter Results Sedimentation rate, automated (07/15/2019 11:02 AM EST) Sed Rate - ESR 26 (H) <20 mm/hr [facility] Pathology Specimen EDTA Whole Blood Performing Organization Address [facility] Phone Number [facility] [address] [place] [address] [facility] [address] [place] [phone] Pathology Creatinine with GFR (07/15/2019 11:02 AM EST) Creatinine 0.73 0.50 - 0.90 [facility] mg/dL Univ [facility] Pathology GFR Non >90 >60 [facility] Bulgarian 2009 CDK-EPI mL/min/1.73m2 [facility] Pathology GFR >90 >60 [facility] 2009 CKD-EPI mL/min/1.73m2 [facility] Pathology Specimen Plasma Performing Organization Address [facility] Phone Number [facility] [address] [place] [address] [phone] [facility] [address] [place] [address] Pathology C-reactive protein (07/15/2019 11:02 AM EST) C Reactive Protein 7.4 <8.0 mg/L [facility] Pathology Specimen Plasma Performing Organization Address [facility] Phone Number [facility] [address] [place] [address] [facility] [address] [place] [phone] Pathology CBC and Differential (07/15/2019 11:02 AM EST) White Blood Cell 6.1 4 - 10 [facility] 10*3/uL [facility] Clin Pathology Red Blood Cell 4.83 4.1 - 5.3 [facility] 10*6/uL [facility] Pathology Hemoglobin 14.0 11.5 - 15.5 [facility] g/dL [facility] Pathology Hematocrit 41.7 36 - 45 % [facility] Pathology Mean Cell Volume 86.5 80 - 96 fL [facility] Clin Pathology Mean Cell Hemoglobin 29.0 27 - 33 pg [facility] Clin Pathology Mean Cell Hgb Conc 33.6 32.0 - 36.0 [facility] g/dL Univ Clin Pathology Red Cell Dist Width 13.9 11.5 - 14.5 % [facility] Pathology Platelet Count 201 150 - 400 [facility] 10*3/uL Univ Clin Pathology Differential Type Automated Diff [facility] Pathology Neutrophil 67 % [facility] Path[facility] Lymphocyte 22 % [facility] Pathology Monocyte 7 % [facility] Clin Pathology Eosinophil 4 % [facility] Clin Pathology Basophil 0 % [facility] Clin Pathology Abs Neutrophil 4.09 1.8 - 7.0 [facility] 10*3/uL Univ Clin Pathology Abs Lymphocyte 1.36 1.2 - 4.0 [facility] 10*3/uL Univ Clin Pathology Abs Monocyte 0.40 0 - 0.8 [facility] 10*3/uL Univ Clin Pathology Abs Eosinophil 0.26 0 - 0.5 [facility] 10*3/uL Univ Clin Pathology Abs Basophil 0.01 0 - 0.2 [facility] 10*3/uL Univ Clin Pathology Nucleated Red Blood 0 0 - 0 [facility] Cells /100{WBCs} [facility] Pathology Specimen EDTA Whole Blood Performing Organization Address City/[facility]/Zipcode Phone Number [facility] [address] [place] [address] [facility] [address] [place] [address] Pathology AST (07/15/2019 11:02 AM EST) AST/SGO 21 <32 U/L [facility] Pathology Specimen Plasma Performing Organization Address City/[facility]/Zipcode Phone Number [facility] [address] [place] [address] [facility] [address] [place] [address] Pathology ALT (07/15/2019 11:02 AM EST) ALT/SGP 34 (H) <33 U/L [facility] Pathology Specimen Plasma Performing Organization Address City/State[facility] Phone Number [facility] [address] [place] [address] [phone] [facility] [address] [place] [address] Pathology documented in this encounter Visit Diagnoses Diagnosis Psoriasis arthropathica - Primary Psoriatic arthropathy High risk medication use Encounter for long-term (current) use of other medications documented in this encounter
[2019-07-26 09:21] VITALS: BP 167/111
--- NOTE | 2019-07-26 09:43 | UC ---
Respiratory Complaint HPI - HPI Summary HPI Summary: Pt presents with c/o cough, wheezing, generalized malaise, nasal congestion, X 3 -4 days. Pt is scheduled for thyroid surgery on 08/10/19 for thyroid cancer. - History of Current Complaint Chief Complaint: UCRespiratory Stated Complaint: CHEST CONGESTION, COUGH Time Seen by Provider: 07/26/19 09:30 Hx Obtained From: Patient Hx Last Menstrual Period: on depo , does not have reg periods. ?: No Onset/Duration: Sudden Onset, Lasting Days, Still Present Timing: Constant Severity Initially: Mild Severity Currently: Severe Pain Intensity: 9 Character: Cough: Nonproductive Aggravating Factors: Exertion, Deep Breaths, Recumbent Position Alleviating Factors: Nothing Associated Signs And Symptoms: Positive: Wheezing, URI, Nasal Congestion - Risk Factors Pulmonary Embolism Risk Factors: Malignancy, Smoking Cardiac Risk Factors: Smoking Pseudomonas Risk Factors: Negative Tuberculosis Risk Factors: Smoking - Allergies/Home Medications Allergies/Adverse Reactions: Allergies Allergy/AdvReac Type Severity Reaction Status Date / Time amoxicillin Allergy Hives Verified 07/26/19 09:06 morphine Allergy Anaphylatic Verified 07/26/19 09:06 Shock Penicillins Allergy Anaphylatic Verified 07/26/19 09:06 Shock sulfamethoxazole Allergy Anaphylatic Verified 07/26/19 09:06 [From Bactrim] Shock trimethoprim [From Bactrim] Allergy Anaphylatic Verified 07/26/19 09:06 Shock Home Medications: Home Medications Dm/PE/Acetaminophen/Doxylamine [Vicks Nyquil Severe Cold-Flu] 1 each PO PRN 03/06 [History] Ibuprofen TAB* [Advil TAB*] 400 mg PO Q6H PRN 07/26/19 [History Confirmed ] Levothyroxine TAB* [Synthroid 25 MCG TAB*] 25 mcg PO DAILY 07/26/19 [History Confirmed 07/26/19] medroxyPROGESTERone ACETATE* [DEPO-Provera*] 150 mg IM 07/26/19 [History] PMH/Surg Hx/FS Hx/Imm Hx Previously Healthy: No - has thyroid cancer Endocrine History: Thyroid Disease - Surgical History Surgical History: Yes Surgery Procedure, Year, and Place: Cyst removed from chest and right side base of neck 2010. Partial tyroidectomy-05/05 - Family History Known Family History: Positive: Unknown - Social History Occupation: Unemployed Lives: With Family Alcohol Use: None Substance Use Type: Prescribed Substance Use Comment - Amount & Last Used: oxycodone Smoking Status (MU): Former Smoker Type: Cigarettes Amount Used/How Often: 1/2 ppd Have You Smoked in the Last Year: Yes When Did the Patient Quit Smoking/Using Tobacco: 03/2014 - Immunization History Vaccination Up to Date: Yes Review of Systems All Other Systems Reviewed And Are Negative: Yes Constitutional: Positive: Fever - subjective, Chills, Fatigue Eyes: Positive: Negative ENT: Positive: Nasal Discharge, Sinus Congestion Respiratory: Positive: Shortness Of Breath, Cough, Other - wheezing Cardiovascular: Positive: Negative Gastrointestinal: Positive: Negative Genitourinary: Positive: Negative Motor: Positive: Negative Neurovascular: Positive: Negative Musculoskeletal: Positive: Negative Neurological: Positive: Negative Psychological: Positive: Negative Is Patient Immunocompromised?: No Physical Exam Triage Information Reviewed: Yes Appearance: Ill-Appearing, Obese Vital Signs: Initial Vital Signs Temp 97.8 F 07/26/19 09:10 Pulse 110 07/26/19 09:10 Resp 20 07/26/19 09:10 BP 167/111 07/26/19 09:10 Pulse Ox 99 07/26/19 09:10 Vital Signs Reviewed: Yes Eye Exam: Normal ENT: Positive: Nasal congestion Dental Exam: Normal Neck exam: Normal Respiratory: Positive: Decreased breath sounds, Wheezing Cardiovascular: Positive: RRR, Tachycardia Musculoskeletal Exam: Normal Neurological Exam: Normal Psychological Exam: Normal Skin Exam: Normal Respiratory Course/Dx - Differential Dx/Diagnosis Differential Diagnosis/HQI/PQRI: Bronchitis, Influenza, Lower Resp Infection Provider Diagnosis: Bronchitis Discharge ED - Sign-Out/Discharge Documenting (check all that apply): Patient Departure All imaging exams completed and their final reports reviewed: No Studies - Discharge Plan Condition: Stable Disposition: HOME Prescriptions: Albuterol HFA INHALER* [Ventolin HFA Inhaler*] 1 - 2 puff INH Q4H PRN #1 mdi PRN Reason: Sob/Wheezing Azithromycin TAB* [Zithromax TAB (Z-NKECHI) 250 mg #6 tabs] 2 tab PO .TODAY, THEN 1 DAILY #1 nkechi predniSONE 10 mg TAB [Deltasone 10 MG TAB*] 30 mg PO DAILY #12 tab Patient Education Materials: Acute Bronchitis (ED), Wheezing (ED) Referrals: Frank Almeida MD [Primary Care Provider] - If Needed - Billing Disposition and Condition Condition: STABLE Disposition: Home
== END 2019-07-26 09:51 | disposition home or self-care (01) ==
LOC: UCCORT 08:27
DX: J40 Bronchitis, not specified as acute or chronic (principal); C73 Malignant neoplasm of thyroid gland; R09.81 Nasal congestion; Z87.891 Personal history of nicotine dependence; Z88.0 Allergy status to penicillin; Z88.5 Allergy status to narcotic agent; Z88.2 Allergy status to sulfonamides
CPT/HCPCS: 99212; G0463